=== PATIENT | male | born 1930 | race Caucasian/White ===

== ENCOUNTER 2018-02-03 12:11 | Inpatient (IN) | payer OTHER ==
[~2018-02-03] VITALS: Ht 172.7 cm; Wt 53.0 kg
[~2018-02-03 12:11] MED LIST: [UNRECOGNIZED DRUG - CODE] OPB
[2018-02-03 12:52] LABS: BASO % 0.1 %; BASO ABS # 0.01 K/uL (0-0.2); HEMATOCRIT 47.5 % (42-52); HEMOGLOBIN 16.6 g/dL (14.0-18.0); IG# 0.04 K/uL (0.00-0.02); LYMPH % 7.7 %; LYMPH ABS # 1.24 K/uL (1.2-3.4); MEAN CELL VOLUME 92.6 fL (80-100); MEAN CORPUSCULAR HEMOGLOBIN 32.4 pg (25-34); MEAN CORPUSCULAR HGB CONC 34.9 g/dl (32-36); MEAN PLATELET VOLUME 9.8 fL (7.4-10.4); MONO % 5.4 %; MONO ABS # 0.88 K/uL (0.11-0.59); NEUT % 86.6 %; NEUT ABS # 13.99 K/uL (1.4-6.5); PLATELET COUNT 168 K/uL (130-400); RED CELL DISTRIBUTION WIDTH CV 13.2 % (11.5-14.5); WHITE BLOOD COUNT 16.16 K/uL (4.8-10.8)
--- NOTE | 2018-02-03 12:56 | DIAGNOSTIC IMAGING REPORT ---
CHEST ONE VIEW PORTABLE CLINICAL HISTORY: WEAK COMPARISON STUDY: 06/18/2016 FINDINGS: The bones soft tissues and hemidiaphragms are normal. The cardiomediastinal silhouette is normal. The lungs are clear. The pulmonary vasculature is normal. IMPRESSION: Negative chest. The above report was generated using voice recognition software. It may contain grammatical, syntax or spelling errors. Electronically signed by: Merrick Quijano M.D. 02/03/2018 12:55 PM Dictated Date/Time: 02/03/2018 12:55 PM
--- NOTE | 2018-02-03 13:08 | DIAGNOSTIC IMAGING REPORT ---
CT HEAD WITHOUT CONTRAST (CT) CLINICAL HISTORY: Trauma. Confusion. COMPARISON STUDY: 06/18/2016 TECHNIQUE: Axial CT of the brain is performed from the vertex to the skull base. IV contrast was not administered for this examination. A dose lowering technique was utilized adhering to the principles of ALARA. CT DOSE: 1014.09 mGy.cm FINDINGS: No intra or extra-axial mass lesions are visualized. There is no CT evidence of acute cortical infarction. There is no evidence of midline shift. There is no acute hemorrhage. No calvarial fractures are visualized. There are patchy white matter hypodensities likely on a small vessel basis. There is mild ventricular dilatation, finding felt to be secondary to volume loss There is opacification of several left-sided ethmoid air cells. IMPRESSION: No acute intracranial findings Electronically signed by: Rosales Schwarz M.D. 02/03/2018 1:06 PM Dictated Date/Time: 02/03/2018 1:05 PM
--- NOTE | 2018-02-03 13:12 | DIAGNOSTIC IMAGING REPORT ---
CT OF THE CERVICAL SPINE CLINICAL HISTORY: Neck pain status post trauma COMPARISON STUDY: May 2016 CT DOSE: TECHNIQUE: CT scan of the cervical spine was performed from the skull base to the thoracic inlet. Images are reviewed in the axial, sagittal, and coronal planes. IV contrast was not administered for this examination. A dose lowering technique was utilized adhering to the principles of ALARA. FINDINGS: The visualized portions of the lung apices reveal no evidence of pneumothorax. The prevertebral soft tissues are normal. No fractures or subluxations are visualized. There are multilevel degenerative changes. There is a suspected small central disc protrusion at the C4-5 level. IMPRESSION: No evidence of acute fracture or traumatic subluxation. Electronically signed by: Rosales Schwarz M.D. 02/03/2018 1:10 PM Dictated Date/Time: 02/03/2018 1:07 PM
[2018-02-03 13:15] LABS: ALBUMIN 3.6 gm/dl (3.4-5.0); CALCIUM 9.1 mg/dl (8.5-10.1); CREATININE 1.19 mg/dl (0.60-1.40); POTASSIUM 4.4 mmol/L (3.5-5.1)
[2018-02-03 13:27] LABS: TOTAL PROTEIN 7.4 gm/dl (6.4-8.2)
[2018-02-03] MEDS ORDERED: CEFTRIAXONE SOD INJ 1 GM ADDVIAL IV STA (14:50)
[2018-02-03] MEDS ORDERED: SODIUM CHLORIDE 0.9% 1000ML 1,000 ML IV STA (14:54)
[2018-02-03] MEDS ORDERED: POLYETHYLENE (MIRALAX) 17 GM PACK PO PRN (15:15)
[2018-02-03] MEDS ORDERED: ALUMINUM/MAGNESIUM/SIMETH (MAALOX MAX) 30 ML UDC PO PRN (15:15)
[2018-02-03] MEDS ORDERED: MAGNESIUM HYDROXIDE SUSP 30 ML UDC PO PRN (15:15)
[2018-02-03] MEDS ORDERED: ACETAMINOPHEN 325 MG TAB PO PRN (15:15)
[2018-02-03] MEDS ORDERED: ONDANSETRON INJ 2 MG/ML 2 ML VIAL IV PRN (15:15)
--- NOTE | 2018-02-03 15:39 | DIAGNOSTIC IMAGING REPORT ---
ABD/PELVIS NO IV OR ORAL CONT CT DOSE: 345.01 mGy.cm HISTORY: Infection hx of bladder ca/complicated UTI TECHNIQUE: Multiaxial CT images of the abdomen and pelvis were performed without contrast. A dose lowering technique was utilized adhering to the principles of ALARA. COMPARISON STUDY: 06/18/2016 FINDINGS: Lung bases are clear. Configuration of the liver spleen and pancreas remain unremarkable. 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 These are similar compared to the prior study. No evidence for hydronephrosis. Bowel pattern is considered nonobstructive. There is a left posterior bladder calculus unchanged in the prior study. There is nodular process anterior aspect central prostate also unchanged. There is a left inguinal hernia containing a loop of bowel unchanged. This shows no obstructive characteristics. IMPRESSION: 1. Chronic and pre-existing changes with no acute process of the abdomen or pelvis. 2. Unchanged bladder calculus, left inguinal hernia, and bilateral renal peripelvic cysts as compared to the prior study. 3. Nonobstructive bowel pattern. The above report was generated using voice recognition software. It may contain grammatical, syntax or spelling errors. Electronically signed by: Merrick Quijano M.D. 02/03/2018 3:38 PM Dictated Date/Time: 02/03/2018 3:34 PM
[2018-02-03 16:08] VITALS: BMI 17.2
--- NOTE | 2018-02-03 16:17 | History and Physical ---
History & Physical Date & Time of Service: February 03, 2018 at 16:17 Chief Complaint: FALL Primary Care Physician: No Doctor, Assigned History of Present Illness Source: patient, clinic records, hospital records, other Patient is an 87yo M with PMH of bladder calculus who presents after being found at home after a fall. Patient is a poor historian 2/2 altered mental status and possible underlying dementia. Obtained a majority of the history from his friend Silvina, who serves as POA. Patient lives alone and is visited by a home health agency frequently. Ambulates by walker and prepares his own food. Yesterday, patient was found on the floor by home health covered in feces. An ambulance was called but patient refused to come to hospital. POA had landlord check in on patient again today and he was found to be lying on the floor covered in urine and feces. Was then brought to the ED for further evaluation. Office of Aging is aware of patient's case and have been involved in the past. POA notes confusion and generalized weakness compared to baseline. Patient is unclear of any events proceeding falls. Does not feel confused. Unable to obtain full ROS 2/2 altered mental status. Does not take any home medications besides eye drops for glaucoma. In ED, patient found to have an elevated wbc count of 16 and + UA. Also has elevated CK of 2161. Head CT, CXR, CT cervical spine without acute changes. Past Medical/Surgical History Medical Problems: (1) Glaucoma Status: Chronic (2) Lumbar transverse process fracture Status: Resolved Surgical Problems: (1) H/O hernia repair Status: Resolved Family History Patient reports no known family medical history. Social History Smoking Status: Never Smoker Alcohol Use: none Marital Status: single Housing status: lives alone Occupational Status: retired Immunizations History of Influenza Vaccine: Unknown History of Tetanus Vaccine?: Unknown History of Pneumococcal: Unknown History of Hepatitis B Vaccine: Unknown Allergies Coded Allergies: No Known Allergies (Verified , 01/02/16) Home Medications Scheduled Carteolol Hcl (Ophth) (Carteolol Hcl), 1 DROP OPB QAM Review of Systems Unable to obtain 2/2 altered mental status. Physical Exam Vital Signs Date Time Temp Pulse Resp B/P (MAP) Pulse Ox O2 Delivery O2 Flow Rate FiO2 02/03/18 16:06 36.3 90 20 130/78 95 02/03/18 14:21 90 20 130/78 95 Room Air 02/03/18 13:13 98 20 138/87 98 Room Air 02/03/18 12:40 36.3 102 20 141/83 97 Room Air 02/03/18 12:32 99 General Appearance: no apparent distress, + cachetic, + pertinent finding ( Poorly groomed) Head: normocephalic, atraumatic Eyes: normal inspection, PERRL, sclerae normal ENT: normal ENT inspection, pharynx normal (dry mucous membranes ), + pertinent finding (poor dentition ) Neck: supple, thyroid normal, trachea midline Respiratory/Chest: chest non-tender, lungs clear, normal breath sounds, no respiratory distress, no accessory muscle use Cardiovascular: regular rate, rhythm, no murmur, normal peripheral pulses Abdomen/GI: non tender, soft, no organomegaly Back: normal inspection Extremities/Musculoskelatal: no calf tenderness, normal capillary refill, no pedal edema, normal range of motion, non-tender, + pertinent finding (Large skin tear on L shoulder, no drainage. Bruising on L hip, non-tender ) Neurologic/Psych: no motor/sensory deficits, alert (oriented to person ), + disoriented Skin: warm/dry, no rash Diagnostics Laboratory Results Results Past 24 Hours Test 02/03/18 12:40 02/03/18 14:25 02/03/18 15:17 02/03/18 15:18 Range/Units White Blood Count 16.16 4.8-10.8 K/uL Red Blood Count 5.13 4.7-6.1 M/uL Hemoglobin 16.6 14.0-18.0 g/dL Hematocrit 47.5 42-52 % Mean Corpuscular Volume 92.6 80-100 fL Mean Corpuscular Hemoglobin 32.4 25-34 pg Mean Corpuscular Hemoglobin Concent 34.9 32-36 g/dl Platelet Count 168 130-400 K/uL Mean Platelet Volume 9.8 7.4-10.4 fL Neutrophils (%) (Auto) 86.6 % Lymphocytes (%) (Auto) 7.7 % Monocytes (%) (Auto) 5.4 % Eosinophils (%) (Auto) 0.0 % Basophils (%) (Auto) 0.1 % Neutrophils # (Auto) 13.99 1.4-6.5 K/uL Lymphocytes # (Auto) 1.24 1.2-3.4 K/uL Monocytes # (Auto) 0.88 0.11-0.59 K/uL Eosinophils # (Auto) 0.00 0-0.5 K/uL Basophils # (Auto) 0.01 0-0.2 K/uL RDW Standard Deviation 45.0 36.4-46.3 fL RDW Coefficient of Variation 13.2 11.5-14.5 % Immature Granulocyte % (Auto) 0.2 % Immature Granulocyte # (Auto) 0.04 0.00-0.02 K/uL Prothrombin Time 10.7 9.0-12.0 SECONDS Prothromb Time International Ratio 1.0 0.9-1.1 Sodium Level 141 136-145 mmol/L Potassium Level 4.4 3.5-5.1 mmol/L Chloride Level 107 98-107 mmol/L Carbon Dioxide Level 25 21-32 mmol/L Anion Gap 9.0 3-11 mmol/L Blood Urea Nitrogen 40 7-18 mg/dl Creatinine 1.19 0.60-1.40 mg/dl Est Creatinine Clear Calc Drug Dose 31.1 ml/min Estimated GFR () 62.8 Estimated GFR (Non- 54.2 BUN/Creatinine Ratio 33.3 10-20 Random Glucose 107 70-99 mg/dl Calcium Level 9.1 8.5-10.1 mg/dl Magnesium Level 2.4 1.8-2.4 mg/dl Total Bilirubin 1.2 0.2-1 mg/dl Direct Bilirubin 0.3 0-0.2 mg/dl Aspartate Amino Transf (AST/SGOT) 155 15-37 U/L Alanine Aminotransferase (ALT/SGPT) 76 12-78 U/L Alkaline Phosphatase 75 45-117 U/L Total Creatine Kinase 2161 39-308 U/L Troponin I 0.025 0-0.045 ng/ml Total Protein 7.4 6.4-8.2 gm/dl Albumin 3.6 3.4-5.0 gm/dl Lipase 91 73-393 U/L Chemistry Specimen Hemolysis Urine Color YELLOW Urine Appearance CLEAR CLEAR Urine pH 5.0 4.5-7.5 Urine Specific [place] 1.027 1.000-1.030 Urine Protein TRACE NEG Urine Glucose (UA) NEG NEG Urine Ketones 1+ NEG Urine Occult Blood 3+ NEG Urine Nitrite POS NEG Urine Bilirubin NEG NEG Urine Urobilinogen NEG NEG Urine Leukocyte Esterase SMALL NEG Urine WBC (Auto) 10-30 0-5 /hpf Urine RBC (Auto) 0-4 0-4 /hpf Urine Hyaline Casts (Auto) 5-10 0-5 /lpf Urine Epithelial Cells (Auto) 0-5 0-5 /lpf Urine Bacteria (Auto) 1+ NEG Microbiology Results 02/03/18 Blood Culture, Ordered Pending 02/03/18 Blood Culture, Received Pending 02/03/18 Urine Culture, Received Pending Diagnostic Radiology CHEST ONE VIEW PORTABLE IMPRESSION: Negative chest. CT OF THE CERVICAL SPINE IMPRESSION: No evidence of acute fracture or traumatic subluxation. CT HEAD WITHOUT CONTRAST (CT) IMPRESSION: No acute intracranial findings CXR normal EKG Sinus tachycardia of [address] abnormality in inferior leads Impression Assessment and Plan Patient is an 87yo M with PMH of bladder calculus who presents after being found at home after a fall and was found to have a UTI and rhabdomyolysis. Metabolic encephalopathy: -In setting of UTI, possible underlying dementia -Situational confusion, agitation -CT head without acute changes -Continue antibiotics, IV fluids -Monitor overnight Complicated UTI: -Wbc of 16, vitals stable -Non-toxic appearance - + UA, urine culture pending -CT abd/pelvis with presence of unchanged bladder calcifications, bilateral renal peripelvic cysts -Rocephin given in ED -Levaquin initiated to cover for possible aspiration -IV fluids Rhabdomyolysis: -S/p multiple falls -CK elevated to 2161 -IV fluid resuscitation -Monitor CK level Possible aspiration: -Witnessed patient coughing during dinner -Made NPO after failed dysphagia screen -Added Unsyn for possible aspiration elevated Procalcitonin/EBC 11 K -CXR in AM to assess for possible aspiration PNA -Speech evaluation /aspiration precaution Multiple falls: -Unwitnessed -Likely 2/2 infection, deconditioning, poor nutrition -No underlying cardiac history, -PT/OT evaluation and conditioning -Consider discharge to rehab Malnutrition: -BMI <18 -Poor diet at home (mostly peanut butter and powdered milk) -Sales And Marketing Executive consult -D5 NSS IV fluids for now Glaucoma: -Cont eye drop DVT Ppx: SQ heparin PCP: Unassigned Dispo: Admitted to med/surg. Discharge planning ordered for rehab vs. placement Silvina Hodges (POA): [phone] Maximilian Bunnystas (office of aging): [phone] Patient seen in collaboration with Dr. Lake. Please see addendum. ATTENDING ADDENDUM: Patient seen and examined care coordinated with Karlene Pond PA-C This is a 87-year-old man-who has not followed with any physician for a while, found on the floor in his apartment, covered in feces History of recurrent fall The ER patient had elevated CPK suggestive of early rhabdomyolysis/possible complicated UTI secondary to prior history of bladder stone/failure to thrive Patient will be admitted to medical floor IV fluid resuscitation Empiric antibiotic Ordered for blood and urine culture Confusion/agitation: Possible metabolic encephalopathy secondary to dehydration and urinary tract infection Part POA at baseline patient is alert and awake able to capable of making own decision patient also noted to have andrew aspiration while eating dinner Patient failed dysphagia screening Ordered for n.p.o. Speech evaluation requested Added Unasyn for coverage of anaerobes in case of aspiration pneumonia CODE STATUS: Patient has POA/POLST form included in chart It reports patient did not want it chest compression, mechanical ventilation No feeding tube PT OT eval requested secondary to ambulatory dysfunction, history of recent falls Patient will need possible skilled rehab followed by placement(unsafe to return home with current situation) Patient has refused to go to rehab, get help multiple times in the past office of aging has been involved Social service consulted for discharge planning Modesta Lake MD Resuscitation Status VTE Prophylaxis Will order VTE Prophylaxis: Yes
[2018-02-03 17:00] VITALS: BP 151/81; PULSE 104; TEMP 37; O2SAT 95
[2018-02-03] MEDS ORDERED: LACTATED RINGER'S 1000ML 1,000 ML IV SCH (17:00)
--- NOTE | 2018-02-03 17:00 | EMERGENCY ROOM VISIT NOTE ---
History Report prepared by Rodney: Feliz Cooper Under the Supervision of: Dr. Bladimir Edge D.O. First contact with patient: 12:14 Chief Complaint: FALL Stated Complaint: FALL History of Present Illness The patient is a 87 year old male who presents to the Emergency Room by EMS for evaluation s/p fall occurring today. He lives alone and is visited by several people who help take care of him. EMS states that it is unknown how long the patient was down for today. They note that the patient had a similar fall earlier this week. They state that the patient defecated himself during the previous fall, and appears to have either not been cleaned up, or have defecated himself again. EMS states that the office of aging is aware of the patient's case. The patient denies urinary symptoms, chest pain, SOB, or abdominal pain. HPI limited secondary to mental state. Source of History: patient History Limited By: other (mental state) Onset: Today Quality: other (fall) Timing: other (episode) Associated Symptoms: No chest pain, No SOB, No abdominal pain, No urinary symptoms Review of Systems ROS limited secondary to mental state. Past Medical & Surgical Medical Problems: (1) Glaucoma (2) Lumbar transverse process fracture (3) prostate surgery Surgical Problems: (1) H/O hernia repair Family History Patient reports no known family medical history. Social History Smoking Status: Never Smoker Alcohol Use: none Marital Status: single Housing Status: lives alone Occupation Status: retired Current/Historical Medications Scheduled Carteolol Hcl (Ophth) (Carteolol Hcl), 1 DROP OPB QAM Allergies Coded Allergies: No Known Allergies (Verified , 01/02/16) Physical Exam Vital Signs Date Time Temp Pulse Resp B/P (MAP) Pulse Ox O2 Delivery O2 Flow Rate FiO2 02/03/18 16:08 Room Air 02/03/18 16:06 36.3 90 20 130/78 95 02/03/18 14:21 90 20 130/78 95 Room Air 02/03/18 13:13 98 20 138/87 98 Room Air 02/03/18 12:40 36.3 102 20 141/83 97 Room Air 02/03/18 12:32 99 Physical Exam GENERAL: Laying in bed, disheveled, malnourished, chronically ill-appearing, covered in stool head to toe. EYE EXAM: normal conjunctiva. PERRL and EOM's intact. OROPHARYNX: no exudate, no erythema, lips, buccal mucosa, and tongue normal and mucous membranes are moist NECK: supple, no nuchal rigidity, no adenopathy, non-tender LUNGS: Clear to auscultation. Normal chest wall mechanics HEART: no murmurs, S1 normal and S2 normal ABDOMEN: abdomen soft, non-tender, normo-active bowel sounds, no masses, no rebound or guarding. BACK: Back is symmetrical on inspection and there is no deformity, no midline tenderness, no CVA tenderness. SKIN: no rashes and no bruising UPPER EXTREMITIES: upper extremities are grossly normal. LOWER EXTREMITIES: No pitting edema. NEURO EXAM: Awake, not oriented to place but oriented to year. No gross weakness of upper or lower extremities. CN 2-12 intact. Medical Decision & Procedures ER Provider Diagnostic Interpretation: Radiology results as stated below per my review and the radiologist's interpretation: CHEST ONE VIEW PORTABLE FINDINGS: The bones soft tissues and hemidiaphragms are normal. The cardiomediastinal silhouette is normal. The lungs are clear. The pulmonary vasculature is normal. IMPRESSION: Negative chest. The above report was generated using voice recognition software. It may contain grammatical, syntax or spelling errors. Electronically signed by: Merrick Quijano M.D. 02/03/2018 12:[address] OF THE CERVICAL SPINE FINDINGS: The visualized portions of the lung apices reveal no evidence of pneumothorax. The prevertebral soft tissues are normal. No fractures or subluxations are visualized. There are multilevel degenerative changes. There is a suspected small central disc protrusion at the C4-5 level. IMPRESSION: No evidence of acute fracture or traumatic subluxation. Electronically signed by: Rosales Schwarz M.D. 02/03/2018 1:[address] HEAD WITHOUT CONTRAST (CT) FINDINGS: No intra or extra-axial mass lesions are visualized. There is no CT evidence of acute cortical infarction. There is no evidence of midline shift. There is no acute hemorrhage. No calvarial fractures are visualized. There are patchy white matter hypodensities likely on a small vessel basis. There is mild ventricular dilatation, finding felt to be secondary to volume loss There is opacification of several left-sided ethmoid air cells. IMPRESSION: No acute intracranial findings Electronically signed by: Rosales Schwarz M.D. 02/03/2018 1:06 PM Laboratory Results 02/03/18 12:40 Red Blood Count 5.13, Mean Corpuscular Volume 92.6, Mean Corpuscular Hemoglobin 32.4, Mean Corpuscular Hemoglobin Concent 34.9, Mean Platelet Volume 9.8, Neutrophils (%) (Auto) 86.6, Lymphocytes (%) (Auto) 7.7, Monocytes (%) (Auto) 5.4, Eosinophils (%) (Auto) 0.0, Basophils (%) (Auto) 0.1, Neutrophils # (Auto) 13.99, Lymphocytes # (Auto) 1.24, Monocytes # (Auto) 0.88, Eosinophils # (Auto) 0.00, Basophils # (Auto) 0.01 02/03/18 12:40 Test 02/03/18 12:40 02/03/18 14:25 02/03/18 15:18 02/03/18 16:17 White Blood Count 16.16 K/uL (4.8-10.8) Red Blood Count 5.13 M/uL (4.7-6.1) Hemoglobin 16.6 g/dL (14.0-18.0) Hematocrit 47.5 % (42-52) Mean Corpuscular Volume 92.6 fL (80-100) Mean Corpuscular Hemoglobin 32.4 pg (25-34) Mean Corpuscular Hemoglobin Concent 34.9 g/dl (32-36) Platelet Count 168 K/uL (130-400) Mean Platelet Volume 9.8 fL (7.4-10.4) Neutrophils (%) (Auto) 86.6 % Lymphocytes (%) (Auto) 7.7 % Monocytes (%) (Auto) 5.4 % Eosinophils (%) (Auto) 0.0 % Basophils (%) (Auto) 0.1 % Neutrophils # (Auto) 13.99 K/uL (1.4-6.5) Lymphocytes # (Auto) 1.24 K/uL (1.2-3.4) Monocytes # (Auto) 0.88 K/uL (0.11-0.59) Eosinophils # (Auto) 0.00 K/uL (0-0.5) Basophils # (Auto) 0.01 K/uL (0-0.2) RDW Standard Deviation 45.0 fL (36.4-46.3) RDW Coefficient of Variation 13.2 % (11.5-14.5) Immature Granulocyte % (Auto) 0.2 % Immature Granulocyte # (Auto) 0.04 K/uL (0.00-0.02) Prothrombin Time 10.7 SECONDS (9.0-12.0) Prothromb Time International Ratio 1.0 (0.9-1.1) Anion Gap 9.0 mmol/L (3-11) Est Creatinine Clear Calc Drug Dose 31.1 ml/min Estimated GFR () 62.8 Estimated GFR (Non- 54.2 BUN/Creatinine Ratio 33.3 (10-20) Calcium Level 9.1 mg/dl (8.5-10.1) Magnesium Level 2.4 mg/dl (1.8-2.4) Total Bilirubin 1.2 mg/dl (0.2-1) Direct Bilirubin 0.3 mg/dl (0-0.2) Aspartate Amino Transf (AST/SGOT) 155 U/L (15-37) Alanine Aminotransferase (ALT/SGPT) 76 U/L (12-78) Alkaline Phosphatase 75 U/L (45-117) Total Creatine Kinase 2161 U/L (39-308) Troponin I 0.025 ng/ml (0-0.045) Total Protein 7.4 gm/dl (6.4-8.2) Albumin 3.6 gm/dl (3.4-5.0) Lipase 91 U/L (73-393) Chemistry Specimen Hemolysis Urine Color YELLOW Urine Appearance CLEAR (CLEAR) Urine pH 5.0 (4.5-7.5) Urine Specific [place] 1.027 (1.000-1.030) Urine Protein TRACE (NEG) Urine Glucose (UA) NEG (NEG) Urine Ketones 1+ (NEG) Urine Occult Blood 3+ (NEG) Urine Nitrite POS (NEG) Urine Bilirubin NEG (NEG) Urine Urobilinogen NEG (NEG) Urine Leukocyte Esterase SMALL (NEG) Urine WBC (Auto) 10-30 /hpf (0-5) Urine RBC (Auto) 0-4 /hpf (0-4) Urine Hyaline Casts (Auto) 5-10 /lpf (0-5) Urine Epithelial Cells (Auto) 0-5 /lpf (0-5) Urine Bacteria (Auto) 1+ (NEG) Lactic Acid Level 1.9 mmol/L (0.4-2.0) Laboratory results per my review. Medications Administered Medications (Trade) Dose Ordered Sig/Juan Francisco Route Start Time Stop Time Status Last Admin Dose Admin Ceftriaxone Sodium (Rocephin Inj) 1 gm NOW STAT IV 02/03/18 14:50 02/03/18 14:51 DC 02/03/18 14:57 1 GM Sodium Chloride 1,000 ml @ 999 mls/hr Q1H1M STAT IV 02/03/18 14:54 02/03/18 15:54 DC 02/03/18 14:59 999 MLS/HR ECG Per My Interpretation Indication: altered mental status Rate (beats per minute): 102 Rhythm: sinus tachycardia Findings: other (Normal axis. Non-specific ST wave changes inferiorly. ) ED Course ED COURSE: Vital signs were reviewed and showed tachycardia. The patients medical record was reviewed The above diagnostic studies were performed and reviewed. ED treatments and interventions as stated above. 1220: The patient was evaluated in room A12B. A complete history and physical examination was performed. 1450: Ordered Rocephin Inj 1 gm IV. 1454: Ordered Sodium Chloride 1000 ml @ 999 mls/hr IV. 1500: Upon reevaluation, the patient is resting comfortably. I discussed my findings with the patient and he understands and agrees with the treatment plan. Based on the patients age, coexisting illnesses, exam and lab findings the decision to treat as an inpatient was made. The patient remained stable while under my care. The patient will be evaluated for further management. Medical Decision Differential diagnosis includes etiologies such as sepsis, UTI, pneumonia, metabolic, electrolyte abnormalities, cardiac sources, intracerebral event, toxicologic, neurologic, as well as others were entertained. Patient is an 87-year-old male who presents the ER covered in stool not oriented to location brought in by EMS. Patient was cleaned and CT head was obtained and unremarkable. Vitals show a leukocytosis along with a clear UTI. Patient was given broad-spectrum antibiotics and fluids. He was updated at bedside. BMP was unremarkable but CK was elevated at 1999. Patient was updated at bedside patient was admitted to internal medicine for rhabdomyolysis in combination with UTI and leukocytosis. Medication Reconcilliation Current Medication List: was personally reviewed by me Blood Pressure Screening Patient's blood pressure: Elevated blood pressure Blood pressure disposition: Elevated BP felt to be situational Consults Time Called: 1457 Consulting Physician: Karlene Harris Hospitalist Returned Call: 1500 I reviewed the patient's case with Karlene Harris will evaluate the patient for further management. Impression Primary Impression: Altered mental status Additional Impressions: UTI (urinary tract infection) Rhabdomyolysis Scribe Attestation The scribe's documentation has been prepared under my direction and personally reviewed by me in its entirety. I confirm that the note above accurately reflects all work, treatment, procedures, and medical decision making performed by me. Departure Information Dispostion Being Evaluated By Hospitalist Referrals No Doctor, Assigned (PCP) Patient Instructions My [facility] Problem Qualifiers Primary Impression: Altered mental status Altered mental status type: unspecified Qualified Codes: R41.82 - Altered mental status, unspecified Additional Impressions: UTI (urinary tract infection) Urinary tract infection type: acute cystitis Hematuria presence: with hematuria Qualified Codes: N30.01 - Acute cystitis with hematuria Rhabdomyolysis Rhabdomyolysis type: non-traumatic Qualified Codes: M62.82 - Rhabdomyolysis
[2018-02-03] MEDS: HEPARIN SOD 5000 UNIT/0.5 ML CARP SQ SCH (18:00)
[2018-02-03] MEDS: D5W AND NSS 1,000 ML IV SCH (19:03)
[2018-02-03] MEDS: AMPICILLIN/SULBACTAM SOD INJ 1,500 MG in SODIUM CHLORIDE 0.9% 100ML 100 ML IV SCH (21:35)
[2018-02-03 23:12] VITALS: BP 140/82; PULSE 88; TEMP 37.1; O2SAT 99
[2018-02-04] MEDS: AMPICILLIN/SULBACTAM SOD INJ 1,500 MG in SODIUM CHLORIDE 0.9% 100ML 100 ML IV SCH ×4 (03:13→20:53)
[2018-02-04] MEDS: D5W AND NSS 1,000 ML IV SCH ×3 (03:46→18:18)
[2018-02-04] MEDS: HEPARIN SOD 5000 UNIT/0.5 ML CARP SQ SCH ×2 (05:05→17:56)
[2018-02-04 07:04] LABS: HEMOGLOBIN 15.2 g/dL (14.0-18.0); MEAN CELL VOLUME 93.1 fL (80-100); MEAN CORPUSCULAR HEMOGLOBIN 32.9 pg (25-34); MEAN CORPUSCULAR HGB CONC 35.3 g/dl (32-36); MEAN PLATELET VOLUME 9.7 fL (7.4-10.4); PLATELET COUNT 127 K/uL (130-400); RED CELL DISTRIBUTION WIDTH CV 13.2 % (11.5-14.5); WHITE BLOOD COUNT 11.83 K/uL (4.8-10.8)
--- NOTE | 2018-02-04 07:05 | DIAGNOSTIC IMAGING REPORT ---
CHEST ONE VIEW PORTABLE CLINICAL HISTORY: Evaluation for aspiration COMPARISON STUDY: I 10 2017 FINDINGS: The bones soft tissues and hemidiaphragms are normal. The cardiomediastinal silhouette is normal. The lungs are clear. The pulmonary vasculature is normal. IMPRESSION: Negative chest. The above report was generated using voice recognition software. It may contain grammatical, syntax or spelling errors. Electronically signed by: Merrick Quijano M.D. 02/04/2018 7:04 AM Dictated Date/Time: 02/04/2018 7:02 AM
[2018-02-04 07:09] VITALS: BP 120/74; PULSE 91; TEMP 36.5; O2SAT 98
--- NOTE | 2018-02-04 07:14 | Clinical Documentation Query ---
CLINICAL DOCUMENTATION QUERY 87 year old male who presents to the Emergency Room by EMS for evaluation s/p fall occurring today. In your clinical opinion is this patient being managed for: ( x ) Severe protein-calorie malnutrition ( ) Moderate protein-calorie malnutrition ( ) Mild protein-calore malnutrition ( ) Not Agree ( ) Other explanation of clinical findings (No explanation is considered a No Response) ( ) Unable to determine ( ) Need to Discuss (Phone CDS or qliq) (No discussion is considered a No Response) The medical record reflects the following clinical findings, treatment, and risk factors. Clinical Indicators: Cachetic appearance, suspected dementia, BMI 17.2, Wt 51.2 Kg, ?aspiration Treatment: Dietary consult, Risk Factors: Age, dementia, Please clarify and document your clinical opinion in the progress notes and discharge summary. Terms such as "probable", "suspected", "likely", "questionable", "possible", or "still to be ruled out" are acceptable. IF IN AGREEMENT, YOU MUST DOCUMENT ABOVE DIAGNOSTIC STATEMENT IN DAILY PROGRESS NOTES AND DISCHARGE SUMMARY. This document is not part of the patient's record. Thank You, Vasu Smalls RN [phone] & via qlicCONNECT
[2018-02-04 08:14] LABS: ALBUMIN 2.7 gm/dl (3.4-5.0); CALCIUM 8.1 mg/dl (8.5-10.1); CREATININE 0.86 mg/dl (0.60-1.40); PHOSPHORUS 1.6 mg/dl (2.5-4.9); POTASSIUM 4.2 mmol/L (3.5-5.1); TOTAL PROTEIN 5.8 gm/dl (6.4-8.2)
[2018-02-04] MEDS: CARTEOLOL HCL 1% OP SOLN 5 ML BTL OPB SCH (08:52)
[2018-02-04] MEDS: CEFTRIAXONE SOD INJ 1 GM in DEXTROSE 5% ADD-VANTAGE 50ML 50 ML IV SCH (13:54)
[2018-02-04 14:12] VITALS: Ht 172.7 cm; Wt 53.0 kg
[2018-02-04] MEDS ORDERED: NURSING DECISION MEDICATION ORDER SCH (14:15)
[2018-02-04] MEDS ORDERED: MICONAZOLE NITRATE POWDER 43 GM EXT PRN (14:15)
--- NOTE | 2018-02-04 16:04 | DIAGNOSTIC IMAGING REPORT ---
VIDEO SWALLOW HISTORY: aspirated during bedside eval; please schedule per order TECHNIQUE: Video fluoroscopic evaluation of swallowing was performed in the AP and lateral projections by the speech pathology staff. The patient is fed nectar-thick and thin liquid barium, a barium coated wafer, and barium pudding. FLUOROSCOPY TIME: 3.5 minutes. A cine loop submitted. COMPARISON STUDY: None. FINDINGS: Multiple abscesses of incomplete epiglottic deflection resulting in silent aspiration with all barium consistencies. There is also moderate to advanced residue seen throughout the hypopharynx throughout the examination. IMPRESSION: 1. Multiple episodes of silent aspiration identified throughout the examination. 2. Please see the speech pathologist report for detailed findings and recommendations. Electronically signed by: Jose Luis Liang M.D. 02/04/2018 4:03 PM Dictated Date/Time: 02/04/2018 4:00 PM
[2018-02-04 16:45] VITALS: O2SAT 98
--- NOTE | 2018-02-04 22:49 | Progress Note ---
Medicine Progress Note Date & Time of Visit: February 04, 2018 at 19:05 . Subjective CC: Follow-up visit for multiple problems. HPI: Admitted yesterday after being found at home on floor. Timing and nature of fall unclear. Better today. No chest pain. No cough or SOB. No nausea or vomiting. Has tremor, onset unclear. Denies alcohol consumption. ROS: as noted above in HPI . Objective Last 8 Hrs Date Time Temp Pulse Resp B/P (MAP) Pulse Ox O2 Delivery O2 Flow Rate FiO2 02/04/18 16:45 98 Room Air Physical Exam: General- lying in bed; no distress Lungs- clear to auscultation; no respiratory distress Cardiovascular- RRR; no JVD; no pretibial edema Abdomen- + bowel sounds, soft, nontender Extremities- no cyanosis; no calf tenderness Neuro- alert, somewhat confused, resting tremor Skin- warm & dry . Laboratory Results: Last 24 Hours Test 02/04/18 05:30 02/04/18 06:44 Urine Opiates Screen NEG Urine Methadone, Qualitative NEG Urine Barbiturates NEG Urine Phencyclidine (PCP) Level NEG Ur Amphetamine/Methamphetamine NEG MDMA (Ecstasy) Screen NEG Urine Benzodiazepines Screen NEG Urine Cocaine Metabolite NEG Urine Marijuana (THC) NEG White Blood Count 11.83 K/uL Red Blood Count 4.62 M/uL Hemoglobin 15.2 g/dL Hematocrit 43.0 % Mean Corpuscular Volume 93.1 fL Mean Corpuscular Hemoglobin 32.9 pg Mean Corpuscular Hemoglobin Concent 35.3 g/dl RDW Standard Deviation 45.0 fL RDW Coefficient of Variation 13.2 % Platelet Count 127 K/uL Mean Platelet Volume 9.7 fL Sodium Level 147 mmol/L Potassium Level 4.2 mmol/L Chloride Level 115 mmol/L Carbon Dioxide Level 29 mmol/L Anion Gap 3.0 mmol/L Blood Urea Nitrogen 25 mg/dl Creatinine 0.86 mg/dl Est Creatinine Clear Calc Drug Dose 43.0 ml/min Estimated GFR () 89.7 Estimated GFR (Non- 77.4 BUN/Creatinine Ratio 28.9 Random Glucose 135 mg/dl Calcium Level 8.1 mg/dl Phosphorus Level 1.6 mg/dl Magnesium Level 2.3 mg/dl Total Bilirubin 1.1 mg/dl Direct Bilirubin 0.2 mg/dl Aspartate Amino Transf (AST/SGOT) 115 U/L Alanine Aminotransferase (ALT/SGPT) 69 U/L Alkaline Phosphatase 58 U/L Total Creatine Kinase 1160 U/L Total Protein 5.8 gm/dl Albumin 2.7 gm/dl Globulin 3.1 gm/dl Albumin/Globulin Ratio 0.9 Assessment & Plan ALTERED MENTAL STATUS Probable metabolic encephalopathy from dehydration and / or encephalopathy secondary to infection. Follow. UTI (present on admission) Urinalysis demonstrated nitrates, leukocyte esterase, WBCs, bacteria. Urine culture pending. Currently receiving ceftriaxone. POSSIBLE SEPSIS Met criteria for sepsis per Sepsis-1 definition and current CMS guidelines. Was tachycardic at time of presentation with a white count of 16,000. Hemodynamically stable. Serum lactate 1.9. Procalcitonin = 14.92. Most likely source of infection urinary tract as discussed above. Continue antibiotics pending blood culture results. DEHYDRATION BUN and creatinine at time of admission 40 and 1.19, respectively. Continue IV fluids. RHABDOMYOLYSIS Secondary to fall and/or immobilization. Total CPK 2161 --> 1160. Continue IV fluids. Monitor renal function. ASPIRATION Witnessed episode of coughing while eating. No infiltrates on chest x-ray. Evaluated by AQUA AMMONIA OPERATOR. Videofluoroscopy demonstrated multiple episodes of silent aspiration. NPO status recommended by AQUA AMMONIA OPERATOR as safest option, but may not be acceptable to the patient. Will require further discussion with patient and his POA. MALNUTRITION Weight 51.2 kg, BMI 17.2. Serum albumin 2.7. Severe protein calorie malnutrition. Malnutrition may be secondary to combination of factors, including dysphagia with aspiration and social factors. Need to address see if this options for nutrition as discussed above. Follow nutritional parameters. Dietitian consulted. FALLS Recurrent falls. Mechanism(s) uncertain. PT / OT. GLAUCOMA Continue usual ophthalmic medications. VTE PROPHYLAXIS SQ heparin. Ambulate. DISPOSITION To be determined. Anticipate need for skilled care and possible long-term placement. Follow by [facility] A[facility]. Consult Case Management. . Current Inpatient Medications: Current Inpatient Medications Medications (Trade) Dose Ordered Sig/Juan Francisco Route Start Time Stop Time Status Last Admin Dose Admin Acetaminophen (Tylenol Tab) 650 mg Q4H PRN PO 02/03/18 15:15 03/05/18 15:14 Al Hydrox/Mg Hydrox/Simethicone (Maalox Max Susp) 15 ml Q4H PRN PO 02/03/18 15:15 03/05/18 15:14 Magnesium Hydroxide (Milk Of Magnesia Susp) 30 ml Q6H PRN PO 02/03/18 15:15 03/05/18 15:14 Polyethylene (Miralax Powder Packet) 17 gm DAILY PRN PO 02/03/18 15:15 03/05/18 15:14 Ondansetron HCl (Zofran Inj) 4 mg Q6H PRN IV 02/03/18 15:15 03/05/18 15:14 Heparin Sodium (Porcine) (Heparin Sq 5000 Unit/0.5ml) 5,000 unit Q12H SQ 02/03/18 18:00 03/05/18 17:59 02/04/18 17:56 5,000 UNIT Ceftriaxone Sodium 1 gm/ Dextrose 50 ml @ 100 mls/hr Q24H IV 02/04/18 14:00 02/13/18 13:59 02/04/18 13:54 100 MLS/HR Carteolol HCl (Ocupress 1% Op-Substitute) 1 drops QAM OPB 02/04/18 08:00 03/06/18 08:59 02/04/18 08:52 1 DROPS Dextrose/Sodium Chloride 1,000 ml @ 125 mls/hr Q8H IV 02/03/18 18:45 03/05/18 18:44 02/04/18 18:18 125 MLS/HR Ampicillin Sodium/ Sulbactam Sodium 1500 mg/Sodium Chloride 104 ml @ 200 mls/hr Q6H IV 02/03/18 21:00 02/10/18 20:59 02/04/18 20:53 200 MLS/HR Miconazole Nitrate (Desenex Powder) 1 appln PRN PRN EXT 02/04/18 14:15 03/06/18 14:14
[2018-02-05] MEDS: D5W AND NSS 1,000 ML IV SCH ×2 (00:30→11:52)
[2018-02-05 00:42] VITALS: BP 141/71; PULSE 89; TEMP 36.5; O2SAT 95
[2018-02-05] MEDS: AMPICILLIN/SULBACTAM SOD INJ 1,500 MG in SODIUM CHLORIDE 0.9% 100ML 100 ML IV SCH ×3 (04:31→17:17)
[2018-02-05] MEDS: HEPARIN SOD 5000 UNIT/0.5 ML CARP SQ SCH ×2 (06:00→17:54)
[2018-02-05 07:17] VITALS: BP 119/68; PULSE 81; TEMP 36.4; O2SAT 97
[2018-02-05 07:30] VITALS: O2SAT 97
[2018-02-05] MEDS: CARTEOLOL HCL 1% OP SOLN 5 ML BTL OPB SCH (07:33)
[2018-02-05 07:54] LABS: HEMATOCRIT 37.2 % (42-52); HEMOGLOBIN 12.8 g/dL (14.0-18.0); MEAN CELL VOLUME 93.7 fL (80-100); MEAN CORPUSCULAR HEMOGLOBIN 32.2 pg (25-34); MEAN CORPUSCULAR HGB CONC 34.4 g/dl (32-36); MEAN PLATELET VOLUME 9.8 fL (7.4-10.4); PLATELET COUNT 119 K/uL (130-400); RED CELL DISTRIBUTION WIDTH CV 13.1 % (11.5-14.5); RED CELL DISTRIBUTION WIDTH SD 45.1 fL (36.4-46.3); WHITE BLOOD COUNT 7.08 K/uL (4.8-10.8)
[2018-02-05 08:59] LABS: ALBUMIN 2.3 gm/dl (3.4-5.0); CALCIUM 7.7 mg/dl (8.5-10.1); CREATININE 0.67 mg/dl (0.60-1.40); POTASSIUM 3.4 mmol/L (3.5-5.1)
[2018-02-05 09:22] LABS: PHOSPHORUS 1.4 mg/dl (2.5-4.9)
[2018-02-05 17:05] VITALS: BP 129/69; PULSE 76; TEMP 36.3; O2SAT 98
[2018-02-05] MEDS: CEFTRIAXONE SOD INJ 1 GM in DEXTROSE 5% ADD-VANTAGE 50ML 50 ML IV SCH (17:54)
--- NOTE | 2018-02-05 19:05 | Progress Note ---
Medicine Progress Note Date & Time of Visit: February 05, 2018 at 11:30 . Subjective CC: Follow-up visit for multiple problems. HPI: Admitted 02/03 after being found at home on floor. Timing and nature of fall unclear. Better today. Less confused. Would like to eat. No fever. No chest pain. No cough or SOB. No nausea or vomiting. ROS: as noted above in HPI . Objective Last 8 Hrs Date Time Temp Pulse Resp B/P (MAP) Pulse Ox O2 Delivery O2 Flow Rate FiO2 02/05/18 17:05 36.3 76 18 129/69 (89) 98 Room Air 02/05/18 17:01 Room Air Physical Exam: General- lying in bed; no distress Lungs- clear to auscultation; no respiratory distress Cardiovascular- RRR; no JVD; no pretibial edema Abdomen- + bowel sounds, soft, nontender Extremities- no cyanosis; no calf tenderness Neuro- alert, somewhat confused, resting tremor Skin- warm & dry . Laboratory Results: Last 24 Hours Test 02/05/18 00:09 02/05/18 07:27 Bedside Glucose 96 mg/dl White Blood Count 7.08 K/uL Red Blood Count 3.97 M/uL Hemoglobin 12.8 g/dL Hematocrit 37.2 % Mean Corpuscular Volume 93.7 fL Mean Corpuscular Hemoglobin 32.2 pg Mean Corpuscular Hemoglobin Concent 34.4 g/dl RDW Standard Deviation 45.1 fL RDW Coefficient of Variation 13.1 % Platelet Count 119 K/uL Mean Platelet Volume 9.8 fL Sodium Level 146 mmol/L Potassium Level 3.4 mmol/L Chloride Level 116 mmol/L Carbon Dioxide Level 28 mmol/L Anion Gap 2.0 mmol/L Blood Urea Nitrogen 14 mg/dl Creatinine 0.67 mg/dl Est Creatinine Clear Calc Drug Dose 57.1 ml/min Estimated GFR () 99.4 Estimated GFR (Non- 85.8 BUN/Creatinine Ratio 20.2 Random Glucose 115 mg/dl Calcium Level 7.7 mg/dl Phosphorus Level 1.4 mg/dl Magnesium Level 2.1 mg/dl Total Bilirubin 0.7 mg/dl Direct Bilirubin 0.2 mg/dl Aspartate Amino Transf (AST/SGOT) 70 U/L Alanine Aminotransferase (ALT/SGPT) 58 U/L Alkaline Phosphatase 46 U/L Total Creatine Kinase 603 U/L Total Protein 5.0 gm/dl Albumin 2.3 gm/dl Globulin 2.7 gm/dl Albumin/Globulin Ratio 0.9 Assessment & Plan ALTERED MENTAL STATUS Probable metabolic encephalopathy from dehydration and / or encephalopathy secondary to infection. Follow. UTI (present on admission) Urinalysis demonstrated nitrates, leukocyte esterase, WBCs, bacteria. Urine culture pending. Currently receiving ceftriaxone. POSSIBLE SEPSIS Met criteria for sepsis per Sepsis-1 definition and current CMS guidelines. Was tachycardic at time of presentation with a white count of 16,000. Hemodynamically stable. Serum lactate 1.9. Procalcitonin = 14.92. Most likely source of infection urinary tract as discussed above. Continue antibiotics pending blood culture results. DEHYDRATION BUN and creatinine at time of admission 40 and 1.19, respectively. Continue IV fluids. RHABDOMYOLYSIS Secondary to fall and/or immobilization. Total CPK 2161 --> 1160 --> 603. Continue IV fluids. Monitor renal function. ASPIRATION Witnessed episode of coughing while eating. No infiltrates on chest x-ray. Evaluated by BRICK GRADER. Videofluoroscopy demonstrated multiple episodes of silent aspiration. NPO status recommended by BRICK GRADER as safest option, but may not be acceptable to the patient. Will require further discussion with patient and his POA. MALNUTRITION Weight 51.2 kg, BMI 17.2. Serum albumin 2.7. Severe protein calorie malnutrition. Malnutrition may be secondary to combination of factors, including dysphagia with aspiration and social factors. Need to address see if this options for nutrition as discussed above. Follow nutritional parameters. Dietitian consulted. FALLS Recurrent falls. Mechanism(s) uncertain. PT / OT. GLAUCOMA Continue usual ophthalmic medications. VTE PROPHYLAXIS SQ heparin. Ambulate. DISPOSITION To be determined. Anticipate need for skilled care and possible long-term placement. Follow by [facility]. Consult Case Management. . Current Inpatient Medications: Current Inpatient Medications Medications (Trade) Dose Ordered Sig/Juan Francisco Route Start Time Stop Time Status Last Admin Dose Admin Acetaminophen (Tylenol Tab) 650 mg Q4H PRN PO 02/03/18 15:15 03/05/18 15:14 Al Hydrox/Mg Hydrox/Simethicone (Maalox Max Susp) 15 ml Q4H PRN PO 02/03/18 15:15 03/05/18 15:14 Magnesium Hydroxide (Milk Of Magnesia Susp) 30 ml Q6H PRN PO 02/03/18 15:15 03/05/18 15:14 Polyethylene (Miralax Powder Packet) 17 gm DAILY PRN PO 02/03/18 15:15 03/05/18 15:14 Ondansetron HCl (Zofran Inj) 4 mg Q6H PRN IV 02/03/18 15:15 03/05/18 15:14 Heparin Sodium (Porcine) (Heparin Sq 5000 Unit/0.5ml) 5,000 unit Q12H SQ 02/03/18 18:00 03/05/18 17:59 02/04/18 17:56 5,000 UNIT Ceftriaxone Sodium 1 gm/ Dextrose 50 ml @ 100 mls/hr Q24H IV 02/04/18 14:00 02/13/18 13:59 02/05/18 17:54 100 MLS/HR Carteolol HCl (Ocupress 1% Op-Substitute) 1 drops QAM OPB 02/04/18 08:00 03/06/18 08:59 02/05/18 07:33 1 DROPS Dextrose/Sodium Chloride 1,000 ml @ 125 mls/hr Q8H IV 02/03/18 18:45 03/05/18 18:44 02/05/18 11:52 125 MLS/HR Ampicillin Sodium/ Sulbactam Sodium 1500 mg/Sodium Chloride 104 ml @ 200 mls/hr Q6H IV 02/03/18 21:00 02/10/18 20:59 02/05/18 17:17 200 MLS/HR Miconazole Nitrate (Desenex Powder) 1 appln PRN PRN EXT 02/04/18 14:15 03/06/18 14:14
[2018-02-05] MEDS: POTASSIUM PHOSPHATE IV SCH (21:14)
[2018-02-05] MEDS: [UNRECOGNIZED DRUG - OTHER] IV SCH (21:14)
[2018-02-05] MEDS: D5W IV SCH (21:14)
[2018-02-06 00:22] VITALS: BP 125/69; PULSE 78; TEMP 37.1; O2SAT 98
[2018-02-06] MEDS: [UNRECOGNIZED DRUG - OTHER] IV SCH ×3 (05:30→22:23)
[2018-02-06] MEDS: D5W IV SCH ×3 (05:30→22:23)
[2018-02-06] MEDS: POTASSIUM PHOSPHATE IV SCH ×3 (05:30→22:23)
[2018-02-06] MEDS: HEPARIN SOD 5000 UNIT/0.5 ML CARP SQ SCH ×2 (05:31→19:04)
[2018-02-06 07:14] VITALS: BP 141/77; PULSE 76; TEMP 36.3; O2SAT 97
[2018-02-06 07:18] LABS: HEMOGLOBIN 12.3 g/dL (14.0-18.0); MEAN CORPUSCULAR HEMOGLOBIN 32.1 pg (25-34); MEAN CORPUSCULAR HGB CONC 34.2 g/dl (32-36); MEAN PLATELET VOLUME 9.7 fL (7.4-10.4); PLATELET COUNT 115 K/uL (130-400); RED CELL DISTRIBUTION WIDTH CV 13.3 % (11.5-14.5); RED CELL DISTRIBUTION WIDTH SD 45.8 fL (36.4-46.3); WHITE BLOOD COUNT 5.98 K/uL (4.8-10.8)
[2018-02-06 07:40] LABS: ALBUMIN 2.2 gm/dl (3.4-5.0); CALCIUM 7.8 mg/dl (8.5-10.1); CREATININE 0.63 mg/dl (0.60-1.40); POTASSIUM 3.4 mmol/L (3.5-5.1)
[2018-02-06 07:46] LABS: PHOSPHORUS 2.7 mg/dl (2.5-4.9)
[2018-02-06] MEDS: CARTEOLOL HCL 1% OP SOLN 5 ML BTL OPB SCH (08:20)
--- NOTE | 2018-02-06 10:40 | Progress Note ---
Medicine Progress Note Date & Time of Visit: February 06, 2018 at 10:20 . Subjective CC: Follow-up visit for multiple problems. HPI: Admitted 02/03 after being found at home on floor. Timing and nature of fall unclear. Confusion at time of admission has improved. NPO due to silent aspiration noted on video swallow; pt unhappy that he cannot eat. No fever. No chest pain. No cough or SOB. No nausea or vomiting. No diarrhea. Chronic urinary hesitancy, no dysuria. ROS: as noted above in HPI . Objective Last 8 Hrs Date Time Temp Pulse Resp B/P (MAP) Pulse Ox O2 Delivery O2 Flow Rate FiO2 02/06/18 07:14 36.3 76 20 141/77 (98) 97 Room Air Physical Exam: General- sitting in chair; no distress Lungs- clear to auscultation; no respiratory distress Cardiovascular- RRR; no JVD; no pretibial edema Abdomen- + bowel sounds, soft, nontender Extremities- no cyanosis; no calf tenderness Neuro- alert, somewhat confused, resting tremor Skin- warm & dry . Laboratory Results: Last 24 Hours Test 02/06/18 06:07 02/06/18 07:04 Bedside Glucose 95 mg/dl White Blood Count 5.98 K/uL Red Blood Count 3.83 M/uL Hemoglobin 12.3 g/dL Hematocrit 36.0 % Mean Corpuscular Volume 94.0 fL Mean Corpuscular Hemoglobin 32.1 pg Mean Corpuscular Hemoglobin Concent 34.2 g/dl RDW Standard Deviation 45.8 fL RDW Coefficient of Variation 13.3 % Platelet Count 115 K/uL Mean Platelet Volume 9.7 fL Sodium Level 146 mmol/L Potassium Level 3.4 mmol/L Chloride Level 114 mmol/L Carbon Dioxide Level 27 mmol/L Anion Gap 5.0 mmol/L Blood Urea Nitrogen 10 mg/dl Creatinine 0.63 mg/dl Est Creatinine Clear Calc Drug Dose 60.8 ml/min Estimated GFR () 102.0 Estimated GFR (Non- 88.0 BUN/Creatinine Ratio 16.1 Random Glucose 112 mg/dl Calcium Level 7.8 mg/dl Phosphorus Level 2.7 mg/dl Magnesium Level 1.8 mg/dl Total Bilirubin 0.6 mg/dl Direct Bilirubin 0.1 mg/dl Aspartate Amino Transf (AST/SGOT) 52 U/L Alanine Aminotransferase (ALT/SGPT) 53 U/L Alkaline Phosphatase 45 U/L Total Protein 5.0 gm/dl Albumin 2.2 gm/dl Globulin 2.8 gm/dl Albumin/Globulin Ratio 0.8 Assessment & Plan ALTERED MENTAL STATUS Probable metabolic encephalopathy from dehydration and / or encephalopathy secondary to infection. Improved. Follow. UTI (present on admission) Urinalysis demonstrated nitrates, leukocyte esterase, WBCs, bacteria. Urine culture growing Enterobacter cloacae and gram positive cocci. Currently receiving ceftriaxone which will cover the Enterobacter. Adjust antibiotic coverage as necessary once gram positive cocci identified. POSSIBLE SEPSIS Met criteria for sepsis per Sepsis-1 definition and current CMS guidelines. Was tachycardic at time of presentation with a white count of 16,000. Hemodynamically stable. Serum lactate 1.9. Procalcitonin = 14.92. Most likely source of infection urinary tract as discussed above. Continue antibiotics pending blood culture results. Check f/u procalcitonin. DEHYDRATION BUN and creatinine at time of admission 40 and 1.19, respectively. BUN and creatinine today 10 and 0.63, respectively. Continue IV fluids. RHABDOMYOLYSIS Secondary to fall and/or immobilization. Total CPK 2161 --> 1160 --> 603. Continue IV fluids. Monitor renal function. ASPIRATION Witnessed episode of coughing while eating. No infiltrates on chest x-ray. Evaluated by STATION INSPECTOR. Videofluoroscopy demonstrated multiple episodes of silent aspiration. NPO status recommended by STATION INSPECTOR as safest option, but may not be acceptable to the patient. Will discuss management further with STATION INSPECTOR> MALNUTRITION Weight 51.2 kg, BMI 17.2. Serum albumin 2.7. Severe protein calorie malnutrition. Malnutrition may be secondary to combination of factors, including dysphagia with aspiration and social factors. Need to address options for nutrition as discussed above (?? PEG). Follow nutritional parameters. Dietitian consulted. FALLS Recurrent falls. Mechanism(s) uncertain. Has resting tremor. ? Parkinson's. Consult Neuro. PT / OT. GLAUCOMA Continue usual ophthalmic medications. VTE PROPHYLAXIS SQ heparin. Ambulate. DISPOSITION To be determined. Anticipate need for skilled care and possible long-term placement. Follow by [facility]. Consult Case Management. Met with HESHAM Hunt 02/05. She offered background information and will assist in decision-making as necessary. . Current Inpatient Medications: Current Inpatient Medications Medications (Trade) Dose Ordered Sig/Juan Francisco Route Start Time Stop Time Status Last Admin Dose Admin Ondansetron HCl (Zofran Inj) 4 mg Q6H PRN IV 02/03/18 15:15 03/05/18 15:14 Heparin Sodium (Porcine) (Heparin Sq 5000 Unit/0.5ml) 5,000 unit Q12H SQ 02/03/18 18:00 03/05/18 17:59 02/04/18 17:56 5,000 UNIT Ceftriaxone Sodium 1 gm/ Dextrose 50 ml @ 100 mls/hr Q24H IV 02/04/18 14:00 02/13/18 13:59 02/05/18 17:54 100 MLS/HR Carteolol HCl (Ocupress 1% Op-Substitute) 1 drops QAM OPB 02/04/18 08:00 03/06/18 08:59 02/06/18 08:20 1 DROPS Miconazole Nitrate (Desenex Powder) 1 appln PRN PRN EXT 02/04/18 14:15 03/06/18 14:14 Potassium Phosphate 21 mmol/ Dextrose/Sodium Chloride 1,007 ml @ 125 mls/hr Q8H4M IV 02/05/18 19:45 03/07/18 19:44 02/06/18 05:30 125 MLS/HR
[2018-02-06 10:52] VITALS: O2SAT 97
[2018-02-06] MEDS: CEFTRIAXONE SOD INJ 1 GM in DEXTROSE 5% ADD-VANTAGE 50ML 50 ML IV SCH (13:54)
[2018-02-06 15:07] VITALS: BP 164/88; PULSE 79; TEMP 36.5; O2SAT 96
[2018-02-06 23:58] VITALS: BP 147/83; PULSE 74; TEMP 36.4; O2SAT 98
[2018-02-07] MEDS: POTASSIUM PHOSPHATE IV SCH ×3 (04:23→21:13)
[2018-02-07] MEDS: D5W IV SCH ×3 (04:23→21:13)
[2018-02-07] MEDS: [UNRECOGNIZED DRUG - OTHER] IV SCH ×3 (04:23→21:13)
[2018-02-07] MEDS: HEPARIN SOD 5000 UNIT/0.5 ML CARP SQ SCH ×2 (05:32→17:47)
[2018-02-07 07:09] LABS: HEMOGLOBIN 12.5 g/dL (14.0-18.0); MEAN CELL VOLUME 92.3 fL (80-100); MEAN CORPUSCULAR HEMOGLOBIN 32.1 pg (25-34); MEAN CORPUSCULAR HGB CONC 34.7 g/dl (32-36); PLATELET COUNT 118 K/uL (130-400); RED CELL DISTRIBUTION WIDTH CV 12.9 % (11.5-14.5); RED CELL DISTRIBUTION WIDTH SD 43.6 fL (36.4-46.3); WHITE BLOOD COUNT 6.11 K/uL (4.8-10.8)
[2018-02-07 07:24] VITALS: BP 122/53; PULSE 74; TEMP 36.9; O2SAT 93
[2018-02-07 07:30] LABS: ALBUMIN 2.2 gm/dl (3.4-5.0); CALCIUM 7.6 mg/dl (8.5-10.1); CREATININE 0.55 mg/dl (0.60-1.40); POTASSIUM 3.3 mmol/L (3.5-5.1)
[2018-02-07 07:35] LABS: PHOSPHORUS 3.3 mg/dl (2.5-4.9); TOTAL PROTEIN 4.9 gm/dl (6.4-8.2)
[2018-02-07 08:00] VITALS: O2SAT 93
[2018-02-07] MEDS: CARTEOLOL HCL 1% OP SOLN 5 ML BTL OPB SCH (09:12)
[2018-02-07] MEDS: CEFTRIAXONE SOD INJ 1 GM in DEXTROSE 5% ADD-VANTAGE 50ML 50 ML IV SCH (14:07)
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
[2018-02-07 15:07] VITALS: BP 141/82; PULSE 76; TEMP 36.8; O2SAT 97
[2018-02-07 16:00] VITALS: O2SAT 93
--- NOTE | 2018-02-07 21:16 | Progress Note ---
Medicine Progress Note Date & Time of Visit: February 07, 2018 at 16:00 . Subjective CC: Follow-up visit for multiple problems. HPI: Admitted 02/03 after being found at home on floor. Timing and nature of fall unclear. Confusion has improved since admission. NPO due to silent aspiration noted on video swallow on 02/04. No fever. No chest pain. No cough or SOB. No nausea or vomiting. No diarrhea. Chronic urinary hesitancy, no dysuria. ROS: as noted above in HPI . Objective Last 8 Hrs Date Time Temp Pulse Resp B/P (MAP) Pulse Ox O2 Delivery O2 Flow Rate FiO2 02/07/18 16:00 93 Room Air 02/07/18 15:07 36.8 76 16 141/82 (101) 97 Room Air Physical Exam: General- lying in bed; no distress Lungs- clear to auscultation; no respiratory distress Cardiovascular- RRR; no JVD; no pretibial edema Abdomen- + bowel sounds, soft, nontender Extremities- no cyanosis; no calf tenderness Neuro- alert, less confused, resting tremor Skin- warm & dry . Laboratory Results: Last 24 Hours Test 02/07/18 06:19 02/07/18 08:33 02/07/18 11:54 02/07/18 18:09 White Blood Count 6.11 K/uL Red Blood Count 3.90 M/uL Hemoglobin 12.5 g/dL Hematocrit 36.0 % Mean Corpuscular Volume 92.3 fL Mean Corpuscular Hemoglobin 32.1 pg Mean Corpuscular Hemoglobin Concent 34.7 g/dl RDW Standard Deviation 43.6 fL RDW Coefficient of Variation 12.9 % Platelet Count 118 K/uL Mean Platelet Volume 10.0 fL Sodium Level 141 mmol/L Potassium Level 3.3 mmol/L Chloride Level 109 mmol/L Carbon Dioxide Level 27 mmol/L Anion Gap 6.0 mmol/L Blood Urea Nitrogen 7 mg/dl Creatinine 0.55 mg/dl Est Creatinine Clear Calc Drug Dose 69.6 ml/min Estimated GFR () 107.8 Estimated GFR (Non- 93.0 BUN/Creatinine Ratio 12.3 Random Glucose 110 mg/dl Calcium Level 7.6 mg/dl Phosphorus Level 3.3 mg/dl Magnesium Level 1.7 mg/dl Total Bilirubin 0.7 mg/dl Aspartate Amino Transf (AST/SGOT) 42 U/L Alanine Aminotransferase (ALT/SGPT) 49 U/L Alkaline Phosphatase 48 U/L Total Creatine Kinase 271 U/L Total Protein 4.9 gm/dl Albumin 2.2 gm/dl Globulin 2.7 gm/dl Albumin/Globulin Ratio 0.8 Procalcitonin 0.65 ng/ml Bedside Glucose 110 mg/dl 106 mg/dl 102 mg/dl Assessment & Plan SEPSIS Met criteria for sepsis per Sepsis-1 definition and current CMS guidelines. Was tachycardic at time of presentation with a white count of 16,000. Hemodynamically stable. Serum lactate 1.9. Procalcitonin = 14.92. Most likely source of infection urinary tract as discussed below. Continue ceftriaxone. Procalcitonin 14.92 --> 0.65. UTI (present on admission) Urinalysis demonstrated nitrates, leukocyte esterase, WBCs, bacteria. Urine culture growing Enterobacter cloacae and gamma Strep, not Enterococcus. Currently receiving ceftriaxone with improvement. Procalcitonin improving. Consider transition to oral therapy once able to take oral meds. ALTERED MENTAL STATUS Probable metabolic encephalopathy from dehydration and / or encephalopathy secondary to infection. Improved. Follow. DEHYDRATION BUN and creatinine at time of admission 40 and 1.19, respectively. BUN and creatinine today 7 and 0.55, respectively. Continue IV fluids. RHABDOMYOLYSIS Secondary to fall and/or immobilization. Total CPK 2161 --> 1160 --> 603 --> 271. Continue IV fluids. Monitor renal function. ASPIRATION Witnessed episode of coughing while eating. No infiltrates on chest x-ray. Evaluated by HARPSICHORD MAKER. Videofluoroscopy demonstrated multiple episodes of silent aspiration. NPO status recommended by HARPSICHORD MAKER as safest option, but may not be acceptable to the patient. Discussed management further with HARPSICHORD MAKER today. His neuro status has improved and swallowing function may have improved as well. Repeat video swallow planned for tomorrow 02/08. MALNUTRITION Weight 51.2 kg, BMI 17.2. Serum albumin 2.7. Severe protein calorie malnutrition. Malnutrition may be secondary to combination of factors, including dysphagia with aspiration and social factors. Need to address options for nutrition as discussed above (?? PEG). Follow nutritional parameters. Dietitian consulted. FALLS Recurrent falls. Mechanism(s) uncertain. Has resting tremor. ? Parkinson's. Neuro consulted. PT / OT. GLAUCOMA Continue usual ophthalmic medications. VTE PROPHYLAXIS SQ heparin. Ambulate. DISPOSITION To be determined. Anticipate need for skilled care and possible long-term placement. Follow by [facility]. Consult Case Management. . Current Inpatient Medications: Current Inpatient Medications Medications (Trade) Dose Ordered Sig/Juan Francisco Route Start Time Stop Time Status Last Admin Dose Admin Ondansetron HCl (Zofran Inj) 4 mg Q6H PRN IV 02/03/18 15:15 03/05/18 15:14 Heparin Sodium (Porcine) (Heparin Sq 5000 Unit/0.5ml) 5,000 unit Q12H SQ 02/03/18 18:00 03/05/18 17:59 02/07/18 05:32 5,000 UNIT Ceftriaxone Sodium 1 gm/ Dextrose 50 ml @ 100 mls/hr Q24H IV 02/04/18 14:00 02/13/18 13:59 02/07/18 14:07 100 MLS/HR Carteolol HCl (Ocupress 1% Op-Substitute) 1 drops QAM OPB 02/04/18 08:00 03/06/18 08:59 02/07/18 09:12 1 DROPS Miconazole Nitrate (Desenex Powder) 1 appln PRN PRN EXT 02/04/18 14:15 03/06/18 14:14 Potassium Phosphate 21 mmol/ Dextrose/Sodium Chloride 1,007 ml @ 125 mls/hr Q8H4M IV 02/05/18 19:45 03/07/18 19:44 02/07/18 21:13 125 MLS/HR
[2018-02-07 23:15] VITALS: BP 165/80; PULSE 78; TEMP 36.6; O2SAT 98
[2018-02-08] VITALS: O2SAT 93
[2018-02-08] MEDS: HEPARIN SOD 5000 UNIT/0.5 ML CARP SQ SCH ×2 (04:54→16:52)
[2018-02-08] MEDS: D5W IV SCH ×2 (04:54→12:27)
[2018-02-08] MEDS: [UNRECOGNIZED DRUG - OTHER] IV SCH ×2 (04:54→12:27)
[2018-02-08] MEDS: POTASSIUM PHOSPHATE IV SCH ×2 (04:54→12:27)
[2018-02-08 07:11] LABS: HEMATOCRIT 40.3 % (42-52); HEMOGLOBIN 13.9 g/dL (14.0-18.0); MEAN CELL VOLUME 92.2 fL (80-100); MEAN CORPUSCULAR HEMOGLOBIN 31.8 pg (25-34); MEAN CORPUSCULAR HGB CONC 34.5 g/dl (32-36); MEAN PLATELET VOLUME 9.4 fL (7.4-10.4); PLATELET COUNT 133 K/uL (130-400); RED CELL DISTRIBUTION WIDTH CV 12.8 % (11.5-14.5); RED CELL DISTRIBUTION WIDTH SD 43.4 fL (36.4-46.3); WHITE BLOOD COUNT 6.39 K/uL (4.8-10.8)
[2018-02-08 07:27] VITALS: BP 152/68; PULSE 73; TEMP 36.4; O2SAT 98
[2018-02-08 07:35] LABS: ALBUMIN 2.3 gm/dl (3.4-5.0); CALCIUM 8.1 mg/dl (8.5-10.1); CREATININE 0.65 mg/dl (0.60-1.40); POTASSIUM 3.9 mmol/L (3.5-5.1)
[2018-02-08 07:48] LABS: TOTAL PROTEIN 5.4 gm/dl (6.4-8.2)
[2018-02-08] MEDS: CARTEOLOL HCL 1% OP SOLN 5 ML BTL OPB SCH (08:01)
--- NOTE | 2018-02-08 11:40 | ELECTROENCEPHALOGRAPH REPORT ---
REQUESTING PHYSICIAN: Nisha Khan. CLINICAL DIAGNOSIS: Change in mental status. EEG DIAGNOSIS: Essentially normal during wakefulness. DESCRIPTION OF TRACING: This EEG was done as a bedside recording and is of reasonable technical quality. A simultaneous video analysis of patient movement and behavior was obtained. No stimulus parameters were utilized. Drowsiness and light sleep were not recorded. There are a number of muscle movement artifacts but relatively few allowing for the movements seen on the screen and the tracing is overall of good technical quality. Under these conditions, there is evidence for normal background rhythm in the alpha range of up to 10 Hz of maximum frequency and 30 microvolts of maximum amplitude. This is maximum posterior head regions bilaterally symmetrical. Polymorphic mid frequency theta activity of low voltage is seen over all head regions without clear focal or regional predominance. Anterior head region maximum bilaterally symmetrical low voltage fast activity in the beta range is present. At no time during the waking tracing is there evidence for potentially epileptogenic activity in the form of polyspike or spike wave bursts, focal sharp waves or focal spikes INTERPRETATION: This EEG is essentially normal during wakefulness without evidence for focal or generalized encephalopathy and without evidence for potentially epileptogenic activity. MTDD
[2018-02-08] MEDS: CEFTRIAXONE SOD INJ 1 GM in DEXTROSE 5% ADD-VANTAGE 50ML 50 ML IV SCH (13:54)
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
--- NOTE | 2018-02-08 15:05 | DIAGNOSTIC IMAGING REPORT ---
VIDEO SWALLOW STUDY CLINICAL HISTORY: Silent aspiration. COMPARISON STUDY: Video swallow study dated 02/04/2018. Fluoroscopy time: 4.0 minutes. FINDINGS: Fluoroscopic guidance was provided to the Department of Speech Pathology in performing a video swallow study. The patient consumed barium-impregnated pudding, cracker with paste, nectar-thick liquid, and thin barium while the swallowing mechanism was observed in real-time. Aspiration was identified on the nectar-thick liquid and thin barium textures. There was prolonged time of mastication with the pudding and cracker with paste textures. No aspiration was clearly seen. Pharyngeal retention was observed. Esophageal dysmotility is noted. IMPRESSION: 1. Aspiration was seen with the nectar-thick liquid and thin barium textures. 2. No aspiration was seen with the remaining sampled textures. 3. See dedicated speech pathology report for detailed findings and recommendations. Dictated: 02/08/2018 2:16 PM Transcribed: 02/08/2018 3:04 PM [email or web address] Electronically signed by: Dave Gray M.D. 02/08/2018 3:07 PM Dictated Date/Time: 02/08/2018 2:16 PM
[2018-02-08 15:43] VITALS: BP 143/80; PULSE 83; TEMP 36.6; O2SAT 99
[2018-02-08 16:03] VITALS: O2SAT 99
[2018-02-08] MEDS ORDERED: GADAVIST IV PRN (18:30)
--- NOTE | 2018-02-08 18:32 | DIAGNOSTIC IMAGING REPORT ---
BRAIN COMBO CLINICAL HISTORY: 87 years-old Male presenting with MS change r/o lesions and abnormalities. TECHNIQUE: Multisequence, multiplanar MR imaging of the brain was performed before and after the administration of intravenous contrast. IV contrast: 5 mL of Gadavist. COMPARISON: Noncontrast CT head from 02/03/2018. FINDINGS: Proportional ventricular and sulcal prominence, likely age-related parenchymal volume loss. Periventricular and subcortical white matter T2/FLAIR hyperintensity, nonspecific but likely indicative of chronic small vessel ischemic change. No mass effect or midline shift. No restricted diffusion to suggest acute ischemia. No hemorrhage. No extra-axial fluid collection. T2 skull base flow voids preserved. No abnormal parenchymal enhancement. Bone marrow signal intensity within the calvarium within normal limits. Mucosal thickening in posterior left ethmoid air cells and sphenoid sinuses. IMPRESSION: 1. Chronic small vessel ischemic change. No acute intracranial abnormality. No abnormal parenchymal enhancement. Electronically signed by: Sascha Lauren M.D. 02/08/2018 6:31 PM Dictated Date/Time: 02/08/2018 6:26 PM
--- NOTE | 2018-02-08 19:16 | Progress Note ---
Medicine Progress Note Date & Time of Visit: February 08, 2018 at 19:09. Subjective seen resting in bed, comfortable states he feels fine overall tolerated lunch with no problems denies chest pain, dyspnea, palpitations, dizziness no abdominal pain no other symptoms Objective Last 8 Hrs Date Time Temp Pulse Resp B/P (MAP) Pulse Ox O2 Delivery O2 Flow Rate FiO2 02/08/18 16:03 99 Room Air 02/08/18 15:43 36.6 83 20 143/80 (101) 99 Room Air Physical Exam: General- oriented x 3, not in distress, speaks in sentences with no effort Head- atraumatic Eyes- PERRL, EOMI, anicteric ENT- oropharynx clear Neck- supple, no JVD, no adenopathy, no thyromegaly Lungs- clear to auscultation BL Heart- regular rhythm; no murmur, normal rate Abdomen- normal bowel sounds, soft, nontender, non distended Extremities- no pretibial edema, no calf tenderness; peripheral pulses intact Neuro- alert, oriented x 3; no gross focal deficits Skin- warm & dry Laboratory Results: Last 24 Hours Test 02/08/18 06:50 White Blood Count 6.39 K/uL Red Blood Count 4.37 M/uL Hemoglobin 13.9 g/dL Hematocrit 40.3 % Mean Corpuscular Volume 92.2 fL Mean Corpuscular Hemoglobin 31.8 pg Mean Corpuscular Hemoglobin Concent 34.5 g/dl RDW Standard Deviation 43.4 fL RDW Coefficient of Variation 12.8 % Platelet Count 133 K/uL Mean Platelet Volume 9.4 fL Sodium Level 140 mmol/L Potassium Level 3.9 mmol/L Chloride Level 107 mmol/L Carbon Dioxide Level 29 mmol/L Anion Gap 4.0 mmol/L Blood Urea Nitrogen 5 mg/dl Creatinine 0.65 mg/dl Est Creatinine Clear Calc Drug Dose 58.9 ml/min Estimated GFR () 100.7 Estimated GFR (Non- 86.9 BUN/Creatinine Ratio 8.2 Random Glucose 102 mg/dl Calcium Level 8.1 mg/dl Total Bilirubin 0.7 mg/dl Aspartate Amino Transf (AST/SGOT) 40 U/L Alanine Aminotransferase (ALT/SGPT) 58 U/L Alkaline Phosphatase 57 U/L Total Protein 5.4 gm/dl Albumin 2.3 gm/dl Globulin 3.1 gm/dl Albumin/Globulin Ratio 0.7 Vitamin B12 Level 325 pg/mL Folate 11.49 ng/mL Thyroid Stimulating Hormone (TSH) 4.660 uIu/ml Date/Time Source Procedure Growth Status 02/08/18 16:15 Stool Shiga Toxin Test Pending Received 02/08/18 16:15 Stool Stool Culture Pending Received Assessment & Plan SEPSIS LIKELY FROM UTI Met criteria for sepsis per Sepsis-1 definition and current CMS guidelines. Was tachycardic at time of presentation with a white count of 16,000. Serum lactate 1.9. Procalcitonin = 14.92. --> 0.65. UTI (present on admission) Urinalysis demonstrated nitrates, leukocyte esterase, WBCs, bacteria. Urine culture growing Enterobacter cloacae and gamma Strep, not Enterococcus. -- improving -- continue Ceftri ALTERED MENTAL STATUS, Resolved Probable metabolic encephalopathy from dehydration and / or encephalopathy secondary to infection. DEHYDRATION BUN and creatinine at time of admission 40 and 1.19, respectively. BUN and creatinine today 7 and 0.55, respectively. -- has received IV fluids RHABDOMYOLYSIS Secondary to fall and/or immobilization. Total CPK 2161 --> 1160 --> 603 --> 271. resolved after IV fluids ASPIRATION Witnessed episode of coughing while eating. No infiltrates on chest x-ray. Evaluated by LANDSCAPE PAINTER. Videofluoroscopy demonstrated multiple episodes of silent aspiration. NPO status recommended by LANDSCAPE PAINTER as safest option, but may not be acceptable to the patient. -- repeat Video Swallow: improving -- soft diet started today monitor discussed with LANDSCAPE PAINTER MALNUTRITION Weight 51.2 kg, BMI 17.2. Serum albumin 2.7. Severe protein calorie malnutrition. Malnutrition may be secondary to combination of factors, including dysphagia with aspiration and social factors. Need to address options for nutrition as discussed above Follow nutritional parameters. Dietitian consulted. FALLS Recurrent falls. Mechanism(s) uncertain. Has resting tremor. ? Parkinson's. Neuro consulted. PT / OT. GLAUCOMA Continue usual ophthalmic medications. VTE PROPHYLAXIS SQ heparin. Ambulate. DISPOSITION To be determined. Anticipate need for skilled care and possible long-term placement. Follow by Office of Aging. Consult Case Management. . Current Inpatient Medications: Current Inpatient Medications Medications (Trade) Dose Ordered Sig/Juan Francisco Route Start Time Stop Time Status Last Admin Dose Admin Ondansetron HCl (Zofran Inj) 4 mg Q6H PRN IV 5/10/18 15:15 03/05/18 15:14 Heparin Sodium (Porcine) (Heparin Sq 5000 Unit/0.5ml) 5,000 unit Q12H SQ 02/03/18 18:00 03/05/18 17:59 02/07/18 05:32 5,000 UNIT Ceftriaxone Sodium 1 gm/ Dextrose 50 ml @ 100 mls/hr Q24H IV 02/04/18 14:00 02/13/18 13:59 02/08/18 13:54 100 MLS/HR Carteolol HCl (Ocupress 1% Op-Substitute) 1 drops QAM OPB 02/04/18 08:00 03/06/18 08:59 02/08/18 08:01 1 DROPS Miconazole Nitrate (Desenex Powder) 1 appln PRN PRN EXT 02/04/18 14:15 03/06/18 14:14 Potassium Phosphate 21 mmol/ Dextrose/Sodium Chloride 1,007 ml @ 125 mls/hr Q8H4M IV 02/05/18 19:45 03/07/18 19:44 02/08/18 12:27 125 MLS/HR Gadobutrol (Gadavist) 5 mmol UD PRN IV 02/08/18 18:30 02/12/18 18:29
[2018-02-08 23:13] VITALS: BP 154/78; PULSE 77; TEMP 36.6; O2SAT 98
[2018-02-09] MEDS: HEPARIN SOD 5000 UNIT/0.5 ML CARP SQ SCH ×2 (05:58→18:16)
[2018-02-09 06:58] VITALS: BP 152/79; PULSE 76; TEMP 36.8; O2SAT 97
[2018-02-09] MEDS: CARTEOLOL HCL 1% OP SOLN 5 ML BTL OPB SCH (07:44)
[2018-02-09 08:07] LABS: CALCIUM 8.2 mg/dl (8.5-10.1); CREATININE 0.69 mg/dl (0.60-1.40); POTASSIUM 3.8 mmol/L (3.5-5.1)
[2018-02-09] MEDS: CEFTRIAXONE SOD INJ 1 GM in DEXTROSE 5% ADD-VANTAGE 50ML 50 ML IV SCH (13:46)
[2018-02-09 15:21] VITALS: BP 107/63; PULSE 77; TEMP 36.7; O2SAT 95
[2018-02-09] MEDS ORDERED: MAGNESIUM SULFATE 1GM / D5W 100 ML IV ONE (15:21)
--- NOTE | 2018-02-09 15:35 | Neurology Progress Notes ---
Neurology Progress Note Date of Service February 09, 2018. Madelyn Devlin is an 87 year old male with a PMH of bladder calculus who presents after being found at home after a fall. He lives alone and is visited by a home health agency frequently. Ambulates by walker he has meals on wheels 3 x week then eat peanut butter bread and cereal other days. He was found on the floor by home health covered in feces. An ambulance was called but patient refused to come to hospital. His landlord was asked to check on him the next day. He was found to be lying on the floor covered in urine and feces. An ambulance was called and he states he was forced to come to the hospital. He thinks he was just looking for something under his bed. Office of Aging is aware of patient's case and have been involved in the past. POA notes confusion and generalized weakness compared to baseline. He is unclear of any events proceeding falls. Does not take any home medications besides eye drops for glaucoma. Today he seems more alert and he is sitting up in bedside chair. He states he is not walking any better but doesn't think rehab will help. denies recent falls , head injury, CP, SOB, abdominal pain, weakness, numbness tingling, N, V. Objective Date Time Temp Pulse Resp B/P (MAP) Pulse Ox O2 Delivery O2 Flow Rate FiO2 02/09/18 15:21 36.7 77 16 107/63 (78) 95 02/09/18 08:00 Room Air 02/09/18 06:58 36.8 76 18 152/79 (103) 97 Room Air 02/09/18 00:06 Room Air 02/08/18 23:13 36.6 77 16 154/78 (103) 98 Room Air 02/08/18 21:55 Room Air 02/08/18 16:03 99 Room Air 02/08/18 15:43 36.6 83 20 143/80 (101) 99 Room Air Last 24 Hours Test 02/09/18 07:20 Sodium Level 140 mmol/L Potassium Level 3.8 mmol/L Chloride Level 107 mmol/L Carbon Dioxide Level 27 mmol/L Anion Gap 6.0 mmol/L Blood Urea Nitrogen 7 mg/dl Creatinine 0.69 mg/dl Est Creatinine Clear Calc Drug Dose 55.5 ml/min Estimated GFR () 98.2 Estimated GFR (Non- 84.8 BUN/Creatinine Ratio 10.2 Random Glucose 93 mg/dl Calcium Level 8.2 mg/dl Magnesium Level 1.7 mg/dl Imaging: MRI brain with and without- Chronic small vessel ischemic change. No acute intracranial abnormality. No abnormal parenchymal enhancement. Exam: Gen: alert NAD lungs CTA CV RRR strength- hand medicine technologist biceps triceps 5/5 bilaterally, hip flex against gravity but not resistance. plantar flex ext 5/5 bilaterally sensation intact to light and cool touch Current Inpatient Medications Medications (Trade) Dose Ordered Sig/Juan Francisco Route Start Time Stop Time Status Last Admin Dose Admin Ondansetron HCl (Zofran Inj) 4 mg Q6H PRN IV 02/03/18 15:15 03/05/18 15:14 Heparin Sodium (Porcine) (Heparin Sq 5000 Unit/0.5ml) 5,000 unit Q12H SQ 02/03/18 18:00 03/05/18 17:59 02/07/18 05:32 5,000 UNIT Ceftriaxone Sodium 1 gm/ Dextrose 50 ml @ 100 mls/hr Q24H IV 02/04/18 14:00 02/13/18 13:59 02/09/18 13:46 100 MLS/HR Carteolol HCl (Ocupress 1% Op-Substitute) 1 drops QAM OPB 02/04/18 08:00 03/06/18 08:59 02/09/18 07:44 1 DROPS Miconazole Nitrate (Desenex Powder) 1 appln PRN PRN EXT 02/04/18 14:15 03/06/18 14:14 Gadobutrol (Gadavist) 5 mmol UD PRN IV 02/08/18 18:30 02/12/18 18:29 Magnesium Sulfate 100 ml @ 100 mls/hr NOW ONCE IV 02/09/18 15:21 02/09/18 16:20 Impression 87 year old male increased weakness, tremor, dysphagia Plan 1. RPR- nonreactive, folate, B12- WNL, TSH- high will defer to primary team whether needs treatment 2. PT/OT for discharge needs 3. LOC- EEG no seizure activity 4. MRI brain with and without -evaluate for lesions or malformation- no acute findings 5. tremor -appears to be essential tremor, difficult to assess walking due to generalize weakness, does not have resting tremor or decreased blink 6. fall precautions 7. care mgt for discharge -may need higher level of care 8. will need to be evaluated as out patient for possible dementia 9. will try some sinemet 25/100 mg BID with meals x 5 days then increase to TID with meals follow up neurology 2-3 weeks after discharge from rehab, Nisha Villasenor MD , or Nisha Khan PAC schedule I have seen and discussed above patient with Dr Nisha Villasenor, neurology Nursing notes very poor initiation of movement in LE. MRI, no infarct, no evidnence of NPH. Rec trial with sinemet for lower 1/2 parkinsonism monitorting for increased confusion. SKYLAR Villasenor MD
[2018-02-09] MEDS: CARBIDOPA/LEVODOPA 25/100MG TAB PO SCH ×2 (17:15→18:35)
--- NOTE | 2018-02-09 22:05 | Progress Note ---
Medicine Progress Note Date & Time of Visit: February 09, 2018 at 22:00. Subjective seen resting in bedside chair comfortable tolerating diet well no abdominal pain no other symptoms oriented x 2 Objective Last 8 Hrs Date Time Temp Pulse Resp B/P (MAP) Pulse Ox O2 Delivery O2 Flow Rate FiO2 02/09/18 16:35 Room Air 02/09/18 15:21 36.7 77 16 107/63 (78) 95 Physical Exam: General- oriented x 3, not in distress, speaks in sentences with no effort Head- atraumatic Eyes-anicteric Neck- supple, no JVD Lungs- clear to auscultation BL Heart- regular rhythm; no murmur, normal rate Abdomen- normal bowel sounds, soft, nontender, non distended Extremities- no pretibial edema, no calf tenderness; peripheral pulses intact Neuro- alert, oriented x 2; no gross focal deficits Skin- warm & dry Laboratory Results: Last 24 Hours Test 02/09/18 07:20 Sodium Level 140 mmol/L Potassium Level 3.8 mmol/L Chloride Level 107 mmol/L Carbon Dioxide Level 27 mmol/L Anion Gap 6.0 mmol/L Blood Urea Nitrogen 7 mg/dl Creatinine 0.69 mg/dl Est Creatinine Clear Calc Drug Dose 55.5 ml/min Estimated GFR () 98.2 Estimated GFR (Non- 84.8 BUN/Creatinine Ratio 10.2 Random Glucose 93 mg/dl Calcium Level 8.2 mg/dl Magnesium Level 1.7 mg/dl Assessment & Plan SEPSIS LIKELY FROM UTI, ENTEROCOCCUS CLOACAE Met criteria for sepsis per Sepsis-1 definition and current CMS guidelines. Was tachycardic at time of presentation with a white count of 16,000. Serum lactate 1.9. Procalcitonin = 14.92. --> 0.65. UTI (present on admission), ENTEROCOCCUS CLOACAE Urinalysis demonstrated nitrates, leukocyte esterase, WBCs, bacteria. Urine culture growing Enterobacter cloacae and gamma Strep, not Enterococcus. -- improving -- continue Ceftriaxone 6/10 days transition to Cefuroxime ALTERED MENTAL STATUS, Resolved Probable metabolic encephalopathy from dehydration and / or encephalopathy secondary to infection. DEHYDRATION BUN and creatinine at time of admission 40 and 1.19, respectively. BUN and creatinine today 7 and 0.55, respectively. -- has received IV fluids RHABDOMYOLYSIS Secondary to fall and/or immobilization. Total CPK 2161 --> 1160 --> 603 --> 271. resolved after IV fluids ASPIRATION Witnessed episode of coughing while eating. No infiltrates on chest x-ray. Evaluated by FIELD INSTALLER. Videofluoroscopy demonstrated multiple episodes of silent aspiration. NPO status recommended by FIELD INSTALLER as safest option, but may not be acceptable to the patient. -- repeat Video Swallow: improving -- soft diet started, tolerated monitor discussed with FIELD INSTALLER MALNUTRITION Weight 51.2 kg, BMI 17.2. Serum albumin 2.7. Severe protein calorie malnutrition. Malnutrition may be secondary to combination of factors, including dysphagia with aspiration and social factors. Need to address options for nutrition as discussed above Follow nutritional parameters. Dietitian consulted. FALLS Recurrent falls. Mechanism(s) uncertain. Has resting tremor. ? Parkinson's. Neuro consulted: Sinemet BID x 5 days, then TID ff up with Neuro in 2-3 weeks PT / OT. GLAUCOMA Continue usual ophthalmic medications. VTE PROPHYLAXIS SQ heparin. Ambulate. DISPOSITION transition to [facility] tomorrow Follow by Office of Aging. Current Inpatient Medications: Current Inpatient Medications Medications (Trade) Dose Ordered Sig/Juan Francisco Route Start Time Stop Time Status Last Admin Dose Admin Ondansetron HCl (Zofran Inj) 4 mg Q6H PRN IV 02/03/18 15:15 03/05/18 15:14 Heparin Sodium (Porcine) (Heparin Sq 5000 Unit/0.5ml) 5,000 unit Q12H SQ 02/03/18 18:00 03/05/18 17:59 02/09/18 18:16 5,000 UNIT Ceftriaxone Sodium 1 gm/ Dextrose 50 ml @ 100 mls/hr Q24H IV 02/04/18 14:00 02/13/18 13:59 02/09/18 13:46 100 MLS/HR Carteolol HCl (Ocupress 1% Op-Substitute) 1 drops QAM OPB 02/04/18 08:00 03/06/18 08:59 02/09/18 07:44 1 DROPS Miconazole Nitrate (Desenex Powder) 1 appln PRN PRN EXT 02/04/18 14:15 03/06/18 14:14 Gadobutrol (Gadavist) 5 mmol UD PRN IV 02/08/18 18:30 02/12/18 18:29 Carbidopa/Levodopa (Sinemet 25/ 100MG Tab) 1 tab BIDM PO 02/09/18 17:15 02/14/18 08:01 Carbidopa/Levodopa (Sinemet 25/ 100MG Tab) 1 tab TIDM PO 02/14/18 12:00 03/11/18 11:59
[2018-02-09 23:05] VITALS: BP 133/74; PULSE 79; TEMP 36.9; O2SAT 97
[2018-02-10] MEDS: HEPARIN SOD 5000 UNIT/0.5 ML CARP SQ SCH (05:42)
[2018-02-10 07:10] VITALS: BP 146/75; PULSE 76; TEMP 36.8; O2SAT 96
[2018-02-10 08:10] VITALS: O2SAT 99
[2018-02-10 08:16] LABS: CALCIUM 8.4 mg/dl (8.5-10.1); CREATININE 0.72 mg/dl (0.60-1.40); POTASSIUM 3.9 mmol/L (3.5-5.1)
[2018-02-10] MEDS: CARBIDOPA/LEVODOPA 25/100MG TAB PO SCH (08:50)
[2018-02-10] MEDS: CARTEOLOL HCL 1% OP SOLN 5 ML BTL OPB SCH (08:50)
[2018-02-10] MEDS: CEFTRIAXONE SOD INJ 1 GM in DEXTROSE 5% ADD-VANTAGE 50ML 50 ML IV SCH (14:04)
--- NOTE | 2018-02-10 14:52 | Progress Note ---
Medicine Progress Note Date & Time of Visit: February 10, 2018 at 14:32. Subjective seen resting in bed comfortable states he feels better in good spirits, conversant denies abdominal pain, nausea tolerating diet well, no problems no other symptoms states he is ready for discharge today Objective Last 8 Hrs Date Time Temp Pulse Resp B/P (MAP) Pulse Ox O2 Delivery O2 Flow Rate FiO2 02/10/18 08:10 99 Room Air 02/10/18 07:10 36.8 76 18 146/75 (98) 96 Room Air Physical Exam: General- oriented x 3, not in distress, speaks in sentences with no effort Eyes-anicteric Neck- no JVD Lungs- clear to auscultation BL, no rales/wheezes Heart- regular rhythm; no murmur, normal rate Abdomen- normal bowel sounds, soft, nontender, non distended Extremities- no pretibial edema, no calf tenderness; peripheral pulses intact Neuro- alert, oriented x 2; no gross focal deficits Skin- warm & dry Laboratory Results: Last 24 Hours Test 02/10/18 07:01 Sodium Level 139 mmol/L Potassium Level 3.9 mmol/L Chloride Level 107 mmol/L Carbon Dioxide Level 26 mmol/L Anion Gap 6.0 mmol/L Blood Urea Nitrogen 12 mg/dl Creatinine 0.72 mg/dl Est Creatinine Clear Calc Drug Dose 53.2 ml/min Estimated GFR () 96.5 Estimated GFR (Non- 83.3 BUN/Creatinine Ratio 16.5 Random Glucose 92 mg/dl Calcium Level 8.4 mg/dl Magnesium Level 2.1 mg/dl Assessment & Plan SEPSIS LIKELY FROM UTI, ENTEROCOCCUS CLOACAE Met criteria for sepsis per Sepsis-1 definition and current CMS guidelines. Was tachycardic at time of presentation with a white count of 16,000. Serum lactate 1.9. Procalcitonin = 14.92. --> 0.65. UTI (present on admission), ENTEROCOCCUS CLOACAE Urinalysis demonstrated nitrates, leukocyte esterase, WBCs, bacteria. Urine culture growing Enterobacter cloacae and gamma Strep, not Enterococcus. -- improving -- given Ceftriaxone 7 days continue 3 more days of Cefuroxime 250mg po BID ALTERED MENTAL STATUS, Resolved Probable metabolic encephalopathy from dehydration and / or encephalopathy secondary to infection. DEHYDRATION BUN and creatinine at time of admission 40 and 1.19, respectively. -- has received IV fluids crea improved to 0.7 RHABDOMYOLYSIS Secondary to fall and/or immobilization. Total CPK 2161 --> 1160 --> 603 --> 271. resolved after IV fluids MODERATE OROPHARYNGEAL DYSPHAGIA Witnessed episode of coughing while eating. No infiltrates on chest x-ray. Evaluated by READING ASSISTANT. Videofluoroscopy demonstrated multiple episodes of silent aspiration. -- repeat Video Swallow: improving -- recommendations by Speech Therapy: This patient presents with moderate oropharyngeal dysphagia and mild esophageal dysfunction. Swallow function did improve however the patient is at a HIGH risk for aspiration. Recommendations are as follows: 1. Mechanical soft diet, thin liquids. NO mixed consistencies (such as cold cereal in milk, soups with noodles and thin broth etc). 2. Aspiration precautions, NO straws, fully upright for meals and for 30 minutes after meals. 3. Stringent oral care to include brushing all surfaces of the mouth and tongue prior to and after meals, and before bed. 4. Double effortful swallow with each bite/sip of food. 5. Follow up READING ASSISTANT services at [facility] on discharge. Ensure pt getting appropriate diet and implementing all aspiration precautions/compensatory strategies MALNUTRITION Weight 51.2 kg, BMI 17.2. Serum albumin 2.7. Severe protein calorie malnutrition. Malnutrition may be secondary to combination of factors, including dysphagia with aspiration and social factors. FALLS, POSSIBLE PARKINSON Recurrent falls. Mechanism(s) uncertain. Has resting tremor Possible Parkinson's. Neuro consulted: Sinemet BID x 5 days, then TID monitor for confusion, fall precautions ff up with Neuro in 2-3 weeks continue PT / OT GLAUCOMA Continue usual ophthalmic medications. VTE PROPHYLAXIS given SQ heparin. Ambulate. DISPOSITION transition to [facility] follow up with Primary Care Physician c/o [facility] Current Inpatient Medications: Current Inpatient Medications Medications (Trade) Dose Ordered Sig/Juan Francisco Route Start Time Stop Time Status Last Admin Dose Admin Ondansetron HCl (Zofran Inj) 4 mg Q6H PRN IV 02/03/18 15:15 03/05/18 15:14 Heparin Sodium (Porcine) (Heparin Sq 5000 Unit/0.5ml) 5,000 unit Q12H SQ 02/03/18 18:00 03/05/18 17:59 02/10/18 05:42 5,000 UNIT Ceftriaxone Sodium 1 gm/ Dextrose 50 ml @ 100 mls/hr Q24H IV 02/04/18 14:00 02/13/18 13:59 02/10/18 14:04 100 MLS/HR Carteolol HCl (Ocupress 1% Op-Substitute) 1 drops QAM OPB 02/04/18 08:00 03/06/18 08:59 02/10/18 08:50 1 DROPS Miconazole Nitrate (Desenex Powder) 1 appln PRN PRN EXT 02/04/18 14:15 03/06/18 14:14 Gadobutrol (Gadavist) 5 mmol UD PRN IV 02/08/18 18:30 02/12/18 18:29 Carbidopa/Levodopa (Sinemet 25/ 100MG Tab) 1 tab BIDM PO 02/09/18 17:15 02/14/18 08:01 02/10/18 08:50 1 TAB Carbidopa/Levodopa (Sinemet 25/ 100MG Tab) 1 tab TIDM PO 02/14/18 12:00 03/11/18 11:59
[2018-02-10] MEDS ORDERED: MCTP EXT ×2 (14:55)
[2018-02-10] MEDS ORDERED: CARB25TA2 PO ×4 (14:55)
[2018-02-10] MEDS ORDERED: CEFU1TAB33 PO ×2 (14:55)
--- NOTE | 2018-02-10 15:00 | Discharge Instructions ---
Discharge Instructions Date of Service February 10, 2018. Admission Reason for Admission: Altered Mental Status, Dehydration, Syncope Discharge Discharge Diagnosis / Problem: ALTERED MENTAL STATUS, URINARY TRACT INFECTION Discharge Goals Goal(s): Diagnostic testing, Therapeutic intervention Activity Recommendations Activity Level: Assistance Required Therapies: Physical Therapy, Occupational Therapy, Speech Therapy . Additional Information Patient informed of condition: Yes Advance Directives: No (unknown) DNR: Yes Level of Care: Skilled Communicable Disease: No Prognosis: Improving Instructions / Follow-Up Instructions / Follow-Up FOLLOW SPEECH THERAPY RECOMMENDATIONS: This patient presents with moderate oropharyngeal dysphagia and mild esophageal dysfunction. Swallow function did improve however the patient is at a HIGH risk for aspiration. Recommendations are as follows: 1. Mechanical soft diet, thin liquids. NO mixed consistencies (such as cold cereal in milk, soups with noodles and thin broth etc). 2. Aspiration precautions, NO straws, fully upright for meals and for 30 minutes after meals. 3. Stringent oral care to include brushing all surfaces of the mouth and tongue prior to and after meals, and before bed. 4. Double effortful swallow with each bite/sip of food. 5. Follow up BORING MACHINE FEEDER services at [facility] on discharge. Ensure pt getting appropriate diet and implementing all aspiration precautions/compensatory strategies FALL PRECAUTIONS. MONITOR FOR CONFUSION. PLEASE REFER TO ACCOMPANYING DISCHARGE SUMMARY FOR FURTHER DETAILS. Current Hospital Diet Patient's current hospital diet: Regular Diet Discharge Diet Recommended Diet: Regular Diet Diet Texture: Mechanical Soft (ground) Procedures Procedures Performed: VIDEOFLUOROSCOPIC SWALLOW EXAM, CHEST CT, ABDOMINAL CT Pending Studies Studies pending at discharge: no Physician Orders On Transfer Special Precautions: FOLLOW SPEECH THERAPY RECOMMENDATIONS: This patient presents with moderate oropharyngeal dysphagia and mild esophageal dysfunction. Swallow function did improve however the patient is at a HIGH risk for aspiration. Recommendations are as follows: 1. Mechanical soft diet, thin liquids. NO mixed consistencies (such as cold cereal in milk, soups with noodles and thin broth etc). 2. Aspiration precautions, NO straws, fully upright for meals and for 30 minutes after meals. 3. Stringent oral care to include brushing all surfaces of the mouth and tongue prior to and after meals, and before bed. 4. Double effortful swallow with each bite/sip of food. 5. Follow up BORING MACHINE FEEDER services at SNF on discharge. Ensure pt getting appropriate diet and implementing all aspiration precautions/compensatory strategies FALL PRECAUTIONS. MONITOR FOR CONFUSION. PLEASE REFER TO ACCOMPANYING DISCHARGE SUMMARY FOR FURTHER DETAILS. Medical Emergencies . Who to Call and When: Medical Emergencies: If at any time you feel your situation is an emergency, please call 911 immediately. . Non-Emergent Contact Non-Emergency issues call your: Primary Care Provider Call Non-Emergent contact if: you have a fever . Past History Medical & Surgical History: (1) Glaucoma (2) Lumbar transverse process fracture (3) Rhabdomyolysis (4) UTI (urinary tract infection) (5) Altered mental status (6) H/O hernia repair . "Provider Documentation" section prepared by Demian Warner. . Core Measure Problem Core Measures: None
--- NOTE | 2018-02-10 15:03 | Discharge Summary ---
Discharge Summary Date of Service February 10, 2018. Discharge Summary Admission Date: February 03, 2018 at 16:15 Discharge Date: February 10, 2018 Discharge Disposition: snf facility Principal Diagnosis: SEPSIS LIKELY FROM UTI, ENTEROCOCCUS CLOACAE Secondary Diagnoses/Problems: Please refer to hospital course below. Procedures: CT HEAD WITHOUT CONTRAST (CT) CLINICAL HISTORY: Trauma. Confusion. COMPARISON STUDY: 06/18/2016 TECHNIQUE: Axial CT of the brain is performed from the vertex to the skull base. IV contrast was not administered for this examination. A dose lowering technique was utilized adhering to the principles of ALARA. CT DOSE: 1014.09 mGy.cm FINDINGS: No intra or extra-axial mass lesions are visualized. There is no CT evidence of acute cortical infarction. There is no evidence of midline shift. There is no acute hemorrhage. No calvarial fractures are visualized. There are patchy white matter hypodensities likely on a small vessel basis. There is mild ventricular dilatation, finding felt to be secondary to volume loss There is opacification of several left-sided ethmoid air cells. IMPRESSION: No acute intracranial findings [~ rep ct add3]] ABD/PELVIS NO IV OR ORAL CONT CT DOSE: 345.01 mGy.cm HISTORY: Infection hx of bladder ca/complicated UTI TECHNIQUE: Multiaxial CT images of the abdomen and pelvis were performed without contrast. A dose lowering technique was utilized adhering to the principles of ALARA. COMPARISON STUDY: 06/18/2016 FINDINGS: Lung bases are clear. Configuration of the liver spleen and pancreas remain unremarkable. 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 These are similar compared to the prior study. No evidence for hydronephrosis. Bowel pattern is considered nonobstructive. There is a left posterior bladder calculus unchanged in the prior study. There is nodular process anterior aspect central prostate also unchanged. There is a left inguinal hernia containing a loop of bowel unchanged. This shows no obstructive characteristics. IMPRESSION: 1. Chronic and pre-existing changes with no acute process of the abdomen or pelvis. 2. Unchanged bladder calculus, left inguinal hernia, and bilateral renal peripelvic cysts as compared to the prior study. 3. Nonobstructive bowel pattern. [~ rep ct add3]] BRAIN COMBO CLINICAL HISTORY: 87 years-old Male presenting with MS change r/o lesions and abnormalities. TECHNIQUE: Multisequence, multiplanar MR imaging of the brain was performed before and after the administration of intravenous contrast. IV contrast: 5 mL of Gadavist. COMPARISON: Noncontrast CT head from 02/03/2018. FINDINGS: Proportional ventricular and sulcal prominence, likely age-related parenchymal volume loss. Periventricular and subcortical white matter T2/FLAIR hyperintensity, nonspecific but likely indicative of chronic small vessel ischemic change. No mass effect or midline shift. No restricted diffusion to suggest acute ischemia. No hemorrhage. No extra-axial fluid collection. T2 skull base flow voids preserved. No abnormal parenchymal enhancement. Bone marrow signal intensity within the calvarium within normal limits. Mucosal thickening in posterior left ethmoid air cells and sphenoid sinuses. IMPRESSION: 1. Chronic small vessel ischemic change. No acute intracranial abnormality. No abnormal parenchymal enhancement. Consultations: Neurologist Dr. Villasenor Pending Studies/Follow-Up: Please refer to hospital course below. Medication Reconciliation New Medications: Cefuroxime Axetil (Cefuroxime Axetil) 250 Mg Tab 1 TAB PO BID for 3 Days Carbidopa-Levodopa (Sinemet) 1 Tab Tab 1 TAB PO BIDM for 4 Days, TAB Carbidopa-Levodopa (Sinemet) 1 Tab Tab 1 TAB PO TIDM for 30 Days, TAB Miconazole Nitrate (Desenex Shake Powder) 43 Appln/43 Gm Powd 1 APPLN EXT PRN PRN for Affected Skin Folds for 30 Days Continued Medications: Carteolol Hcl (Ophth) (Carteolol Hcl) 1 % Sowmya 1 DROP OPB QAM Admission Information HPI (per Admitting provider): Patient is an 87yo M with PMH of bladder calculus who presents after being found at home after a fall. Patient is a poor historian 2/2 altered mental status and possible underlying dementia. Obtained a majority of the history from his friend Silvina, who serves as POA. Patient lives alone and is visited by a home health agency frequently. Ambulates by walker and prepares his own food. Yesterday, patient was found on the floor by home health covered in feces. An ambulance was called but patient refused to come to hospital. HESHAM had landlord check in on patient again today and he was found to be lying on the floor covered in urine and feces. Was then brought to the ED for further evaluation. [facility] is aware of patient's case and have been involved in the past. POA notes confusion and generalized weakness compared to baseline. Patient is unclear of any events proceeding falls. Does not feel confused. Unable to obtain full ROS 2/2 altered mental status. Does not take any home medications besides eye drops for glaucoma. In ED, patient found to have an elevated wbc count of 16 and + UA. Also has elevated CK of 2161. Head CT, CXR, CT cervical spine without acute changes. Physical Exam (per Admitting): General Appearance: no apparent distress, + cachetic, + pertinent finding ( Poorly groomed) Head: normocephalic, atraumatic Eyes: normal inspection, PERRL, sclerae normal ENT: normal ENT inspection, pharynx normal (dry mucous membranes ), + pertinent finding (poor dentition ) Neck: supple, thyroid normal, trachea midline Respiratory/Chest: chest non-tender, lungs clear, normal breath sounds, no respiratory distress, no accessory muscle use Cardiovascular: regular rate, rhythm, no murmur, normal peripheral pulses Abdomen/GI: non tender, soft, no organomegaly Back: normal inspection Extremities/Musculoskelatal: no calf tenderness, normal capillary refill, no pedal edema, normal range of motion, non-tender, + pertinent finding (Large skin tear on L shoulder, no drainage. Bruising on L hip, non-tender ) Neurologic/Psych: no motor/sensory deficits, alert (oriented to person ), + disoriented Skin: warm/dry, no rash Hospital Course SEPSIS LIKELY FROM UTI, ENTEROCOCCUS CLOACAE Met criteria for sepsis per Sepsis-1 definition and current CMS guidelines. Was tachycardic at time of presentation with a white count of 16,000. Serum lactate 1.9. Procalcitonin = 14.92. --> 0.65. UTI (present on admission), ENTEROCOCCUS CLOACAE Urinalysis demonstrated nitrates, leukocyte esterase, WBCs, bacteria. Urine culture growing Enterobacter cloacae and gamma Strep, not Enterococcus. -- improving -- given Ceftriaxone 7 days continue 3 more days of Cefuroxime 250mg po BID ALTERED MENTAL STATUS, Resolved Probable metabolic encephalopathy from dehydration and / or encephalopathy secondary to infection. DEHYDRATION BUN and creatinine at time of admission 40 and 1.19, respectively. -- has received IV fluids crea improved to 0.7 RHABDOMYOLYSIS Secondary to fall and/or immobilization. Total CPK 2161 --> 1160 --> 603 --> 271. resolved after IV fluids MODERATE OROPHARYNGEAL DYSPHAGIA Witnessed episode of coughing while eating. No infiltrates on chest x-ray. Evaluated by [facility]. Videofluoroscopy demonstrated multiple episodes of silent aspiration. -- repeat Video Swallow: improving -- recommendations by Speech Therapy: This patient presents with moderate oropharyngeal dysphagia and mild esophageal dysfunction. Swallow function did improve however the patient is at a HIGH risk for aspiration. Recommendations are as follows: 1. Mechanical soft diet, thin liquids. NO mixed consistencies (such as cold cereal in milk, soups with noodles and thin broth etc). 2. Aspiration precautions, NO straws, fully upright for meals and for 30 minutes after meals. 3. Stringent oral care to include brushing all surfaces of the mouth and tongue prior to and after meals, and before bed. 4. Double effortful swallow with each bite/sip of food. 5. Follow up [facility] services at SNF on discharge. Ensure pt getting appropriate diet and implementing all aspiration precautions/compensatory strategies MALNUTRITION Weight 51.2 kg, BMI 17.2. Serum albumin 2.7. Severe protein calorie malnutrition. Malnutrition may be secondary to combination of factors, including dysphagia with aspiration and social factors. FALLS, POSSIBLE PARKINSON Recurrent falls. Mechanism(s) uncertain. Has resting tremor Possible Parkinson's. Neuro consulted: Sinemet BID x 5 days, then TID monitor for confusion, fall precautions ff up with Neuro in 2-3 weeks continue PT / OT GLAUCOMA Continue usual ophthalmic medications. VTE PROPHYLAXIS given SQ heparin. Ambulate. DISPOSITION transition to [facility] follow up with Primary Care Physician c/o [facility] Total time spent on discharge = 40 minutes This includes examination of the patient, discharge planning, medication reconciliation, and communication with other providers. Discharge Instructions Discharge Instructions Date of Service February 10, 2018. Admission Reason for Admission: Altered Mental Status, Dehydration, Syncope Discharge Discharge Diagnosis / Problem: ALTERED MENTAL STATUS, URINARY TRACT INFECTION Discharge Goals Goal(s): Diagnostic testing, Therapeutic intervention Activity Recommendations Activity Level: Assistance Required Therapies: Physical Therapy, Occupational Therapy, Speech Therapy . Additional Information Patient informed of condition: Yes Advance Directives: No (unknown) DNR: Yes Level of Care: Skilled Communicable Disease: No Prognosis: Improving Instructions / Follow-Up Instructions / Follow-Up FOLLOW SPEECH THERAPY RECOMMENDATIONS: This patient presents with moderate oropharyngeal dysphagia and mild esophageal dysfunction. Swallow function did improve however the patient is at a HIGH risk for aspiration. Recommendations are as follows: 1. Mechanical soft diet, thin liquids. NO mixed consistencies (such as cold cereal in milk, soups with noodles and thin broth etc). 2. Aspiration precautions, NO straws, fully upright for meals and for 30 minutes after meals. 3. Stringent oral care to include brushing all surfaces of the mouth and tongue prior to and after meals, and before bed. 4. Double effortful swallow with each bite/sip of food. 5. Follow up [facility] services at SNF on discharge. Ensure pt getting appropriate diet and implementing all aspiration precautions/compensatory strategies FALL PRECAUTIONS. MONITOR FOR CONFUSION. PLEASE REFER TO ACCOMPANYING DISCHARGE SUMMARY FOR FURTHER DETAILS. Current Hospital Diet Patient's current hospital diet: Regular Diet Discharge Diet Recommended Diet: Regular Diet Diet Texture: Mechanical Soft (ground) Procedures Procedures Performed: VIDEOFLUOROSCOPIC SWALLOW EXAM, CHEST CT, ABDOMINAL CT Pending Studies Studies pending at discharge: no Physician Orders On Transfer Special Precautions: FOLLOW SPEECH THERAPY RECOMMENDATIONS: This patient presents with moderate oropharyngeal dysphagia and mild esophageal dysfunction. Swallow function did improve however the patient is at a HIGH risk for aspiration. Recommendations are as follows: 1. Mechanical soft diet, thin liquids. NO mixed consistencies (such as cold cereal in milk, soups with noodles and thin broth etc). 2. Aspiration precautions, NO straws, fully upright for meals and for 30 minutes after meals. 3. Stringent oral care to include brushing all surfaces of the mouth and tongue prior to and after meals, and before bed. 4. Double effortful swallow with each bite/sip of food. 5. Follow up [facility] services at SNF on discharge. Ensure pt getting appropriate diet and implementing all aspiration precautions/compensatory strategies FALL PRECAUTIONS. MONITOR FOR CONFUSION. PLEASE REFER TO ACCOMPANYING DISCHARGE SUMMARY FOR FURTHER DETAILS. Medical Emergencies . Who to Call and When: Medical Emergencies: If at any time you feel your situation is an emergency, please call 911 immediately. . Non-Emergent Contact Non-Emergency issues call your: Primary Care Provider Call Non-Emergent contact if: you have a fever . Past History Medical & Surgical History: (1) Glaucoma (2) Lumbar transverse process fracture (3) Rhabdomyolysis (4) UTI (urinary tract infection) (5) Altered mental status (6) H/O hernia repair . "Provider Documentation" section prepared by Demian Warner. . Core Measure Problem Core Measures: None
[2018-02-10 16:35] VITALS: BP 146/75; PULSE 76; TEMP 36.8; O2SAT 99
[2018-02-14] MEDS ORDERED: CARBIDOPA/LEVODOPA 25/100MG TAB PO SCH (12:00)
== END 2018-02-10 17:26 | DRG 871 ==
LOC: EDBD 12:11 → C.EDA 12:13 → ENRESERV 15:36 → C.MS4W 16:15
PROVIDERS: ADMIT Hospitalist; ATTEND Internal Medicine
DX: A41.81 Sepsis due to Enterococcus (principal); G93.41 Metabolic encephalopathy; N39.0 Urinary tract infection, site not specified; M62.82 Rhabdomyolysis; E46 Unspecified protein-calorie malnutrition; Z68.1 Body mass index [BMI] 19.9 or less, adult; E86.0 Dehydration; W19.XXXA Unspecified fall, initial encounter; H40.9 Unspecified glaucoma; F03.90 Unspecified dementia, unspecified severity, without behavioral disturbance, psychotic disturbance, mood disturbance, and anxiety; Y92.009 Unspecified place in unspecified non-institutional (private) residence as the place of occurrence of the external cause; R13.12 Dysphagia, oropharyngeal phase

== ENCOUNTER → 2018-02-11 | Outpatient (CLI) | payer OTHER ==
[~2018-02-11] MED LIST changes: +CARB25TA2 PO; +CEFU1TAB33 PO; +MCTP EXT
[2018-02-11 09:03] LABS: BASO % 0.1 %; BASO ABS # 0.01 K/uL (0-0.2); EOS % 0.6 %; EOS ABS # 0.08 K/uL (0-0.5); HEMATOCRIT 41.8 % (42-52); HEMOGLOBIN 14.4 g/dL (14.0-18.0); IG# 0.06 K/uL (0.00-0.02); LYMPH % 7.4 %; LYMPH ABS # 0.99 K/uL (1.2-3.4); MEAN CELL VOLUME 93.1 fL (80-100); MEAN CORPUSCULAR HEMOGLOBIN 32.1 pg (25-34); MEAN CORPUSCULAR HGB CONC 34.4 g/dl (32-36); MEAN PLATELET VOLUME 9.9 fL (7.4-10.4); MONO ABS # 1.07 K/uL (0.11-0.59); NEUT % 83.5 %; NEUT ABS # 11.21 K/uL (1.4-6.5); PLATELET COUNT 202 K/uL (130-400); RED CELL DISTRIBUTION WIDTH CV 13.3 % (11.5-14.5); RED CELL DISTRIBUTION WIDTH SD 45.2 fL (36.4-46.3); WHITE BLOOD COUNT 13.42 K/uL (4.8-10.8)
[2018-02-11 09:25] LABS: ALBUMIN 2.6 gm/dl (3.4-5.0); ALKALINE PHOSPHATASE 63 U/L (45-117); ALT/SGPT 56 U/L (12-78); AST/SGOT 29 U/L (15-37); BLOOD UREA NITROGEN 17 mg/dl (7-18); CALCIUM 8.3 mg/dl (8.5-10.1); CARBON DIOXIDE 26 mmol/L (21-32); CREATININE 0.76 mg/dl (0.60-1.40); GLUCOSE 91 mg/dl (70-99); POTASSIUM 3.9 mmol/L (3.5-5.1); SODIUM 137 mmol/L (136-145)
== END ==
LOC: C.LABUPNIT 08:16
PROVIDERS: ATTEND Nurse Practitioner Family
DX: E46 Unspecified protein-calorie malnutrition (principal); N39.0 Urinary tract infection, site not specified

== ENCOUNTER → 2018-02-15 | Outpatient (CLI) | payer OTHER ==
[2018-02-15 10:09] LABS: BASO % 0.2 %; BASO ABS # 0.02 K/uL (0-0.2); EOS % 1.6 %; EOS ABS # 0.13 K/uL (0-0.5); HEMATOCRIT 40.9 % (42-52); HEMOGLOBIN 13.6 g/dL (14.0-18.0); IG# 0.07 K/uL (0.00-0.02); LYMPH % 17.3 %; LYMPH ABS # 1.42 K/uL (1.2-3.4); MEAN CELL VOLUME 96.2 fL (80-100); MEAN CORPUSCULAR HGB CONC 33.3 g/dl (32-36); MEAN PLATELET VOLUME 9.5 fL (7.4-10.4); MONO % 11.1 %; MONO ABS # 0.91 K/uL (0.11-0.59); NEUT % 68.9 %; NEUT ABS # 5.67 K/uL (1.4-6.5); PLATELET COUNT 245 K/uL (130-400); RED CELL DISTRIBUTION WIDTH CV 13.5 % (11.5-14.5); RED CELL DISTRIBUTION WIDTH SD 47.2 fL (36.4-46.3); WHITE BLOOD COUNT 8.22 K/uL (4.8-10.8)
== END ==
LOC: C.LABUPNIT 09:16
PROVIDERS: ATTEND Nurse Practitioner Family
DX: N39.0 Urinary tract infection, site not specified (principal)

== ENCOUNTER 2018-05-02 13:04 | Emergency (ER) | payer OTHER ==
[~2018-05-02] VITALS: Ht 167.6 cm; Wt 50.4 kg
[2018-05-02 13:12] VITALS: TEMP 36.8; Ht 167.6 cm; Wt 50.4 kg
[2018-05-02 14:07] LABS: BASO % 0.2 %; BASO ABS # 0.01 K/uL (0-0.2); EOS % 0.6 %; EOS ABS # 0.04 K/uL (0-0.5); HEMATOCRIT 44.7 % (42-52); HEMOGLOBIN 15.2 g/dL (14.0-18.0); IG# 0.02 K/uL (0.00-0.02); LYMPH % 16.6 %; LYMPH ABS # 1.09 K/uL (1.2-3.4); MEAN CELL VOLUME 93.5 fL (80-100); MEAN CORPUSCULAR HEMOGLOBIN 31.8 pg (25-34); MEAN PLATELET VOLUME 9.9 fL (7.4-10.4); MONO % 11.4 %; MONO ABS # 0.75 K/uL (0.11-0.59); NEUT % 70.9 %; NEUT ABS # 4.65 K/uL (1.4-6.5); PLATELET COUNT 192 K/uL (130-400); RED CELL DISTRIBUTION WIDTH CV 13.9 % (11.5-14.5); RED CELL DISTRIBUTION WIDTH SD 47.3 fL (36.4-46.3); WHITE BLOOD COUNT 6.56 K/uL (4.8-10.8)
--- NOTE | 2018-05-02 14:47 | DIAGNOSTIC IMAGING REPORT ---
ABDOMEN 2VIEW W/PA CHEST RTN CLINICAL HISTORY: dysphagia dysphagia COMPARISON STUDY: 02/04/2018 FINDINGS: The soft tissues, psoas shadows, renal outlines and intestinal gas pattern appear normal. There is no evidence for bowel obstruction. There is no evidence for free intraperitoneal air. No abnormal abdominal calcifications are seen. A frontal view of the chest was performed and is unremarkable. IMPRESSION: Normal study. The above report was generated using voice recognition software. It may contain grammatical, syntax or spelling errors. Electronically signed by: Merrick Quijano M.D. 05/02/2018 2:46 PM Dictated Date/Time: 05/02/2018 2:45 PM
[2018-05-02 14:48] LABS: ALBUMIN 3.4 gm/dl (3.4-5.0); ALKALINE PHOSPHATASE 85 U/L (45-117); ALT/SGPT 8 U/L (12-78); AST/SGOT 12 U/L (15-37); BLOOD UREA NITROGEN 12 mg/dl (7-18); CALCIUM 9.1 mg/dl (8.5-10.1); CARBON DIOXIDE 28 mmol/L (21-32); GLUCOSE 112 mg/dl (70-99); POTASSIUM 4.7 mmol/L (3.5-5.1); SODIUM 137 mmol/L (136-145)
[2018-05-02] MEDS ORDERED: CEPHALEXIN MONOHYDRATE 250 MG CAP PO ONE (15:30)
--- NOTE | 2018-05-02 18:02 | EMERGENCY ROOM VISIT NOTE ---
History Report prepared by Rodney: Jaz Garcia Under the Supervision of: Dr. Kristina Clark D.O. First contact with patient: 13:21 Chief Complaint: MENTAL HEALTH EVALUATION Stated Complaint: MHID History of Present Illness The patient is an 87 year old male who presents to the Emergency Room for a mental health evaluation. Per the psych spring encaser, the patient is here on a 302 due to him making suicidal statements to his prison nurses. They report that the patient asked the nurse for books on how to commit suicide and she asked if he was suicidal and had a plan. They state that the patient said that he needed the books to pick a plan. They report that they told him all items would have to be removed from his room then and he reportedly told the nurse that it would make him want to do it faster then. They state that the patient hates being at [facility] because he doesn't like being taken care of. The psych spring encaser's report that he feels helpless and hopeless. They note that he made the comment of wishing for a terminal illness that would take him out faster. They note that they believe this was exacerbated by his POA picking him up over the weekend and taking him to where he used to live. The patient states that he has never felt this sad and depressed before. He reports that he has never had thoughts of hurting himself before or ever trying to hurt himself before. He states that he has been thinking about hurting himself for the past few months now. He notes that he has not been drinking enough water recently. The patient denies cough, loss of appetite, recent illness, and being in any pain. Source of History: patient Onset: a few months Quality: other (mental health) Timing: worsening Modifying Factors (Worsening): other (being at the prison) Associated Symptoms: No cough Note: The patient complains of worsening depression and suicidal ideations. The patient denies loss of appetite, recent illness, and being in any pain. Review of Systems See HPI for pertinent positives & negatives. A total of 10 systems reviewed and were otherwise negative. Past Medical & Surgical Medical Problems: (1) Glaucoma (2) Hyperthyroidism (3) Lumbar transverse process fracture (4) Parkinson disease Surgical Problems: (1) H/O hernia repair Family History Patient reports no known family medical history. Social History Smoking Status: Former Smoker Alcohol Use: none Marital Status: single Housing Status: lives alone Occupation Status: retired Current/Historical Medications Scheduled Carbidopa/Levodopa (Sinemet 25MG/100MG), 1 TAB PO TIDM Carteolol Hcl (Ophth) (Carteolol Hcl), 1 DROP OPB QPM Levothyroxine Sodium (Synthroid), 25 MCG PO QAM Tamsulosin Hcl (Flomax), 0.4 MG PO QAM Trazodone Hcl (Trazodone), 25 MG PO HS Scheduled PRN Acetaminophen (Tylenol), 650 MG PO Q8 PRN for Pain or Fever Bisacodyl (Dulcolax), 1 SUPP WV DAILY PRN for NO BM IN 4 DAYS. Magnesium Hydroxide (Milk of Magnesia 400 mg/5Ml), 30 ML PO DAILY PRN for NO BM IN 3 DAYS. Sodium Phosphate/Biphosphate (Fleet Enema), 1 EA WV DAILY PRN for IF NO RESULTS FROM SUPP. Allergies Coded Allergies: No Known Allergies (Verified , 05/02/18) Physical Exam Vital Signs Date Time Temp Pulse Resp B/P (MAP) Pulse Ox O2 Delivery O2 Flow Rate FiO2 05/03/18 04:42 78 16 126/67 97 05/03/18 00:30 72 16 104/77 96 Room Air 05/02/18 16:30 77 18 119/63 99 Room Air 05/02/18 14:37 77 18 120/63 99 Room Air 05/02/18 13:12 36.8 79 18 137/77 98 Room Air Physical Exam GENERAL: alert, well appearing, well nourished, no distress, non-toxic, hard of hearing EYE EXAM: normal conjunctiva, PERRL and EOM's grossly intact OROPHARYNX: no exudate, no erythema, lips, buccal mucosa, and tongue normal and mucous membranes are moist NECK: supple, no nuchal rigidity, no adenopathy, non-tender LUNGS: Decreased breath sounds, but clear to auscultation. Normal chest wall mechanics HEART: no murmurs, S1 normal and S2 normal ABDOMEN: abdomen soft, non-tender, normo-active bowel sounds, no masses, no rebound or guarding. BACK: Back is symmetrical on inspection and there is no deformity, no midline tenderness, no CVA tenderness. SKIN: no rashes and no bruising UPPER EXTREMITIES: upper extremities are grossly normal. LOWER EXTREMITIES: No pitting edema. NEURO EXAM: Normal sensorium, cranial nerves II-XII grossly intact, normal speech, no gross weakness of arms, no gross weakness of legs. Psych: Positive depression. Positive SI. No definite plan. Medical Decision & Procedures ER Provider Diagnostic Interpretation: Radiology results have been interpreted by the radiologist and reviewed by me. ABDOMEN 2VIEW W/PA CHEST RTN CLINICAL HISTORY: dysphagia dysphagia COMPARISON STUDY: 02/04/2018 FINDINGS: The soft tissues, psoas shadows, renal outlines and intestinal gas pattern appear normal. There is no evidence for bowel obstruction. There is no evidence for free intraperitoneal air. No abnormal abdominal calcifications are seen. A frontal view of the chest was performed and is unremarkable. IMPRESSION: Normal study. The above report was generated using voice recognition software. It may contain grammatical, syntax or spelling errors. Electronically signed by: Merrick Quijano M.D. 05/02/2018 2:46 PM Dictated Date/Time: 05/02/2018 2:45 PM HEAD WITHOUT CONTRAST (CT) CLINICAL HISTORY: 87 years-old Male presenting with si, parkinsons, psych request. TECHNIQUE: Multidetector CT imaging of the head was performed without the use of intravenous contrast. IV contrast: None. A dose lowering technique was used consistent with the principles of ALARA (as low as reasonably achievable). COMPARISON: 02/03/2018 and brain MR from 02/08/2018 and numerous additional prior exams. CT DOSE (mGy.cm): The estimated cumulative dose is 537.48 mGy.cm. FINDINGS: Draw Off Worker topogram: Unremarkable. Proportional ventricular and sulcal prominence with the exception of the vertex, where there is disproportionate gyral crowding and sulcal effacement similar to prior exams. There is a decreased callosal angle measuring 59 degrees. Brain parenchyma otherwise normal in appearance with preserved tineo-white differentiation. No midline shift. No hemorrhage or acute territorial infarct. No extra-axial fluid collection. Mucosal thickening in ethmoid air cells and the sphenoid sinuses similar to prior. Calvarium intact. Intracranial atherosclerosis noted. IMPRESSION: 1. No acute intracranial abnormality. 2. Findings could suggest normal pressure hydrocephalus versus advanced age-related parenchymal volume loss though the appearance is unchanged since June 18, 2016. Electronically signed by: Sascha Lauren M.D. 05/02/2018 7:25 PM Dictated Date/Time: 05/02/2018 7:18 PM Laboratory Results 05/02/18 13:53 Red Blood Count 4.78, Mean Corpuscular Volume 93.5, Mean Corpuscular Hemoglobin 31.8, Mean Corpuscular Hemoglobin Concent 34.0, Mean Platelet Volume 9.9, Neutrophils (%) (Auto) 70.9, Lymphocytes (%) (Auto) 16.6, Monocytes (%) (Auto) 11.4, Eosinophils (%) (Auto) 0.6, Basophils (%) (Auto) 0.2, Neutrophils # (Auto ) 4.65, Lymphocytes # (Auto) 1.09, Monocytes # (Auto) 0.75, Eosinophils # (Auto ) 0.04, Basophils # (Auto) 0.01 05/02/18 13:53 Test 05/02/18 13:50 05/02/18 13:53 Urine Color YELLOW Urine Appearance CLEAR (CLEAR) Urine pH 5.5 (4.5-7.5) Urine Specific [place] 1.015 (1.000-1.030) Urine Protein NEG (NEG) Urine Glucose (UA) NEG (NEG) Urine Ketones NEG (NEG) Urine Occult Blood NEG (NEG) Urine Nitrite POS (NEG) Urine Bilirubin NEG (NEG) Urine Urobilinogen NEG (NEG) Urine Leukocyte Esterase LARGE (NEG) Urine WBC (Auto) >30 /hpf (0-5) Urine RBC (Auto) 0-4 /hpf (0-4) Urine Hyaline Casts (Auto) 1-5 /lpf (0-5) Urine Epithelial Cells (Auto) 0-5 /lpf (0-5) Urine Bacteria (Auto) 2+ (NEG) Urine Opiates Screen NEG (NEG) Urine Methadone, Qualitative NEG (NEG) Urine Barbiturates NEG (NEG) Urine Phencyclidine (PCP) Level NEG (NEG) Ur Amphetamine/Methamphetamine NEG (NEG) MDMA (Ecstasy) Screen NEG (NEG) Urine Benzodiazepines Screen NEG (NEG) Urine Cocaine Metabolite NEG (NEG) Urine Marijuana (THC) NEG (NEG) White Blood Count 6.56 K/uL (4.8-10.8) Red Blood Count 4.78 M/uL (4.7-6.1) Hemoglobin 15.2 g/dL (14.0-18.0) Hematocrit 44.7 % (42-52) Mean Corpuscular Volume 93.5 fL (80-100) Mean Corpuscular Hemoglobin 31.8 pg (25-34) Mean Corpuscular Hemoglobin Concent 34.0 g/dl (32-36) Platelet Count 192 K/uL (130-400) Mean Platelet Volume 9.9 fL (7.4-10.4) Neutrophils (%) (Auto) 70.9 % Lymphocytes (%) (Auto) 16.6 % Monocytes (%) (Auto) 11.4 % Eosinophils (%) (Auto) 0.6 % Basophils (%) (Auto) 0.2 % Neutrophils # (Auto) 4.65 K/uL (1.4-6.5) Lymphocytes # (Auto) 1.09 K/uL (1.2-3.4) Monocytes # (Auto) 0.75 K/uL (0.11-0.59) Eosinophils # (Auto) 0.04 K/uL (0-0.5) Basophils # (Auto) 0.01 K/uL (0-0.2) RDW Standard Deviation 47.3 fL (36.4-46.3) RDW Coefficient of Variation 13.9 % (11.5-14.5) Immature Granulocyte % (Auto) 0.3 % Immature Granulocyte # (Auto) 0.02 K/uL (0.00-0.02) Anion Gap 6.0 mmol/L (3-11) Est Creatinine Clear Calc Drug Dose 45.5 ml/min Estimated GFR () 92.4 Estimated GFR (Non- 79.8 BUN/Creatinine Ratio 15.5 (10-20) Calcium Level 9.1 mg/dl (8.5-10.1) Magnesium Level 2.2 mg/dl (1.8-2.4) Total Bilirubin 0.5 mg/dl (0.2-1) Aspartate Amino Transf (AST/SGOT) 12 U/L (15-37) Alanine Aminotransferase (ALT/SGPT) 8 U/L (12-78) Alkaline Phosphatase 85 U/L (45-117) Troponin I < 0.015 ng/ml (0-0.045) Total Protein 7.0 gm/dl (6.4-8.2) Albumin 3.4 gm/dl (3.4-5.0) Globulin 3.6 gm/dl (2.5-4.0) Albumin/Globulin Ratio 0.9 (0.9-2) Thyroid Stimulating Hormone (TSH) 2.170 uIu/ml (0.300-4.500) Ethyl Alcohol mg/dL < 3.0 mg/dl (0-3) Date/Time Source Procedure Growth Status 05/02/18 18:38 Nasal MRSA DNA Surveillance Screen - Final Specimen Negative for MRSA by DNA Probe Complete Laboratory results per my review. Medications Administered Medications (Trade) Dose Ordered Sig/Juan Francisco Route Start Time Stop Time Status Last Admin Dose Admin Cephalexin Monohydrate (Keflex Cap) 500 mg NOW ONCE PO 05/02/18 15:30 05/02/18 15:31 DC 05/02/18 16:17 500 MG Cephalexin Monohydrate (Keflex Cap) 500 mg NOW ONCE PO 05/03/18 01:45 05/03/18 01:46 DC 05/03/18 01:52 500 MG ECG Per My Interpretation Indication: other Rate (beats per minute): 78 Rhythm: sinus rhythm Findings: other (normal axis, normal intervals) ED Course 1335: The patient was evaluated in room A7. A complete history and physical exam was performed. 1530: Ordered Keflex Cap 500 mg PO. 1730: I signed the patient's 302 at this time. The delegate is here to do a bed search at this time. 0: Pt stable. No acute changes. Awaiting placement. Signed out to Dr. Edge. Medical Decision Differential diagnoses considered include mood disorder, infection, hypoglycemia , electrolyte abnormalities, cardiac sources, intracerebral event, toxicologic, neurologic, as well as others. Patient here with depression and plan to research a method to commit suicide. Patient with no other physical complaints. Is oriented and appropriate otherwise. I do not suspect encephalopathy related to the urinary tract infection. Patient was started on Keflex. No other evidence of bacteremia/ sepsis. Patient with no other symptoms to suggest obstructive uropathy. Patient hemodynamically stable throughout. Questionable hydrocephalus noted on CT, I feel this is unlikely to be contributing to the patient's current presentation, and is more likely artifactual given his advanced age. Patient with no neurologic symptoms. Patient made aware of all results. 302 upheld. Medication Reconcilliation Current Medication List: was personally reviewed by me Blood Pressure Screening Patient's blood pressure: Normal blood pressure Blood pressure disposition: Did not require urgent referral Impression Primary Impression: Depression Additional Impressions: Suicidal ideation Parkinson disease UTI (urinary tract infection) Scribe Attestation The scribe's documentation has been prepared under my direction and personally reviewed by me in its entirety. I confirm that the note above accurately reflects all work, treatment, procedures, and medical decision making performed by me. Departure Information Dispostion Still a Patient Referrals Jing Joseph (PCP) Patient Instructions My [facility] Problem Qualifiers Primary Impression: Depression Depression Type: unspecified Qualified Codes: F32.9 - Major depressive disorder, single episode, unspecified Additional Impressions: UTI (urinary tract infection) Urinary tract infection type: acute cystitis Hematuria presence: without hematuria Qualified Codes: N30.00 - Acute cystitis without hematuria
[2018-05-02] MEDS ORDERED: SODIENE PR (19:05)
[2018-05-02] MEDS ORDERED: LEVO25TA PO (19:05)
[2018-05-02] MEDS ORDERED: MAGNSUS73 PO (19:05)
[2018-05-02] MEDS ORDERED: TAMS0.4C38 PO (19:05)
[2018-05-02] MEDS ORDERED: CARB25TA12 PO (19:05)
[2018-05-02] MEDS ORDERED: ACET-1311 PO (19:05)
[2018-05-02] MEDS ORDERED: BISA10SU3 PR (19:05)
[2018-05-02] MEDS ORDERED: TRAZ50TA35 PO (19:05)
--- NOTE | 2018-05-02 19:26 | DIAGNOSTIC IMAGING REPORT ---
HEAD WITHOUT CONTRAST (CT) CLINICAL HISTORY: 87 years-old Male presenting with si, parkinsons, psych request. TECHNIQUE: Multidetector CT imaging of the head was performed without the use of intravenous contrast. IV contrast: None. A dose lowering technique was used consistent with the principles of ALARA (as low as reasonably achievable). COMPARISON: 02/03/2018 and brain MR from 02/08/2018 and numerous additional prior exams. CT DOSE (mGy.cm): The estimated cumulative dose is 537.48 mGy.cm. FINDINGS: Global Coordinator topogram: Unremarkable. Proportional ventricular and sulcal prominence with the exception of the vertex, where there is disproportionate gyral crowding and sulcal effacement similar to prior exams. There is a decreased callosal angle measuring 59 degrees. Brain parenchyma otherwise normal in appearance with preserved tineo-white differentiation. No midline shift. No hemorrhage or acute territorial infarct. No extra-axial fluid collection. Mucosal thickening in ethmoid air cells and the sphenoid sinuses similar to prior. Calvarium intact. Intracranial atherosclerosis noted. IMPRESSION: 1. No acute intracranial abnormality. 2. Findings could suggest normal pressure hydrocephalus versus advanced age-related parenchymal volume loss though the appearance is unchanged since June 18, 2016. Electronically signed by: Sascha Lauren M.D. 05/02/2018 7:25 PM Dictated Date/Time: 05/02/2018 7:18 PM
--- NOTE | 2018-05-03 01:32 | EMERGENCY ROOM VISIT NOTE ---
ED Visit Note First contact with patient: 20:59 Patient was signed out to me by Dr. cortez awaiting placement of a 302 for suicidal thoughts. Patient also has a UTI. Patient was resting comfortably on repeat evaluations. Patient was given additional dose of Keflex for his UTI. Was placed at [facility]. Currently awaiting transport.
[2018-05-03] MEDS ORDERED: CEPHALEXIN MONOHYDRATE 250 MG CAP PO ONE (01:45)
[2018-05-03 04:42] VITALS: BP 126/67; PULSE 78; O2SAT 97
== END 2018-05-03 04:42 ==
LOC: EDBD 13:04 → C.EDA 13:05
DX: F32.9 Major depressive disorder, single episode, unspecified (principal); R45.851 Suicidal ideations; N30.00 Acute cystitis without hematuria; G20 Parkinson's disease; H40.9 Unspecified glaucoma; E03.9 Hypothyroidism, unspecified; Z87.891 Personal history of nicotine dependence

== ENCOUNTER 2018-05-18 15:25 | Emergency (ER) | payer OTHER ==
[~2018-05-18] VITALS: Ht 174 cm; Wt 50.1 kg
[2018-05-18 15:40] VITALS: Ht 174 cm; Wt 50.1 kg
--- NOTE | 2018-05-18 16:15 | EMERGENCY ROOM VISIT NOTE ---
History Report prepared by Rodney: Monty Beckett Under the Supervision of: Dr. Luca Duran M.D. First contact with patient: 15:52 Chief Complaint: MENTAL HEALTH EVALUATION Stated Complaint: MENTAL HEALTH History of Present Illness The patient is a 87 year old male who presents to the Emergency Room with complaints of suicidal thoughts and ideations. The patient is brought in on an involuntary 302. The patient was recently at [facility] seeing a psychiatrist for this. He then went to [facility] and was advising the staff he again wanted to kill himself, so he was brought in on an involuntary 302. The patient advised staff he was going to hang himself with hangers and also asked staff members to push him off a jackie. The patient expressed if he gets an opportunity, he will kill himself. The patient refuses inpatient or outpatient treatment for this. He talked with a claims director at the alf, and they sent him here. The patient states he has been feeling like this for "about a month or two" and doesn't relate it to any specific incident. He states he had symptoms like this years ago, but states it "wasn't enough to notice." The patient states he has started to have nausea the past few days as well as urinary incontinence at night. Pt denies LOC, headache, fevers, chills, diaphoresis, visual changes, neck pain , chest pain, breathing difficulties, vomiting, abdominal pain, back pain, melena, hematochezia, numbness, weakness, lymphadenopathy, rash, or other complaints. Source of History: patient Onset: 1-2 months Symptom Intensity: moderate Review of Systems See HPI for pertinent positives and negatives. A total of ten systems were reviewed and were otherwise negative. Constitutional: No fever, No chills Respiratory: No cough, No shortness of breath Cardiovascular: No chest pain Abdomen: + nausea, No pain, No vomiting, No diarrhea Genitourinary - Male: + urinary incontinence Psychiatric: + problem reported (Suicidal thoughts) Integumentary: No rash Past Medical & Surgical Medical Problems: (1) Glaucoma (2) Hyperthyroidism (3) Lumbar transverse process fracture (4) Parkinson disease Surgical Problems: (1) H/O hernia repair (2) History of prostate surgery Family History Patient reports no known family medical history. Social History Smoking Status: Never Smoker Alcohol Use: none Marital Status: single Housing Status: lives alone Occupation Status: retired Current/Historical Medications Scheduled Carbidopa/Levodopa (Sinemet 25MG/100MG), 1 TAB PO TIDM Carteolol Hcl (Ophth) (Carteolol Hcl), 1 DROP OPB QPM Cholecalciferol (Vitamin D), 1 TAB PO DAILY Escitalopram (Lexapro), 10 MG PO DAILY Levofloxacin (Levaquin), 750 MG PO Q2D Levothyroxine Sodium (Synthroid), 25 MCG PO QAM Tamsulosin Hcl (Flomax), 0.4 MG PO QAM Trazodone Hcl (Trazodone), 25 MG PO HS Scheduled PRN Acetaminophen (Tylenol), 650 MG PO Q8 PRN for Pain or Fever Bisacodyl (Dulcolax), 1 SUPP DC DAILY PRN for NO BM IN 4 DAYS. Magnesium Hydroxide (Milk of Magnesia 400 mg/5Ml), 30 ML PO DAILY PRN for NO BM IN 3 DAYS. Sodium Phosphate/Biphosphate (Fleet Enema), 1 EA DC DAILY PRN for IF NO RESULTS FROM SUPP. Allergies Coded Allergies: No Known Allergies (Verified , 05/02/18) Physical Exam Vital Signs Date Time Temp Pulse Resp B/P (MAP) Pulse Ox O2 Delivery O2 Flow Rate FiO2 05/18/18 17:57 84 17 148/86 97 Room Air 05/18/18 15:40 84 17 151/77 98 Room Air Physical Exam GENERAL: Age appropriate appearing. Awake, alert, well appearing, no distress HENT: Normocephalic, atraumatic. TM's normal. Oropharynx unremarkable. EYES: PERRL. EOMI. Normal conjunctiva. Sclera non-icteric. NECK: Supple. No nuchal rigidity. FROM. No JVD or bruit. RESPIRATORY: Clear. Breath sounds equal. No wheezes. No rhonchi. Normal respiratory effort. CARDIAC: Normal rate. Regular rhythm. No murmurs. No rubs. No JVD. ABDOMEN: Soft, non distended. No tenderness to palpation. No rebound or guarding. No masses. MUSCULOSKELETAL: Unremarkable. No edema. No discoloration. Gross motor strength symmetric. NEURO: Cranial nerves 2-12 grossly intact. Normal sensorium. No sensory or motor deficits noted. Speech normal. No pronator drift. SKIN: No rash or jaundice noted. LYMPH: No adenopathy. PSYCH: depressed mood. flat affect. yes to suicidal ideation with plans to hang himself. no to homicidal ideation. Medical Decision & Procedures ER Provider Diagnostic Interpretation: Radiology results as stated below per my review and radiologist interpretation: CHEST ONE VIEW PORTABLE CLINICAL HISTORY: 87 years-old Male presenting with suicidal. TECHNIQUE: Portable upright AP view of the chest was obtained. COMPARISON: 05/02/2018. FINDINGS: Cardiomediastinal silhouette normal. Multiple skin folds noted over the left hemithorax. No focal opacity. No large effusion or pneumothorax. Osseous structures normal. Upper abdomen normal. IMPRESSION: 1. No acute cardiopulmonary disease. HEAD WITHOUT CONTRAST (CT) CLINICAL HISTORY: 87 years-old Male presenting with EVALUATE FOR PSYCH CLEARANCE. TECHNIQUE: Multidetector CT imaging of the head was performed without the use of intravenous contrast. IV contrast: None. A dose lowering technique was used consistent with the principles of ALARA (as low as reasonably achievable). COMPARISON: 05/02/2018. CT DOSE (mGy.cm): The estimated cumulative dose is 537.48 mGy.cm. FINDINGS: Workforce Specialist topogram: Unremarkable. Proportional ventricular and sulcal prominence, likely age-related parenchymal volume loss with the exception of the vertex where there is gyral crowding and sulcal effacement. The callosal angle now measures 51 degrees, previously 59 degrees. Periventricular and subcortical white matter hypoattenuation, nonspecific but likely indicative of chronic small vessel ischemic change. No mass effect or midline shift. No hemorrhage or acute territorial infarct. No extra-axial fluid collection. Paranasal sinuses and mastoid air cells clear. Calvarium intact. IMPRESSION: 1. No acute intracranial abnormality. 2. 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 Correlate clinically. The appearance is unchanged since 2016. Laboratory Results 05/18/18 16:55 Red Blood Count 4.46, Mean Corpuscular Volume 93.7, Mean Corpuscular Hemoglobin 31.4, Mean Corpuscular Hemoglobin Concent 33.5, Mean Platelet Volume 9.7, Neutrophils (%) (Auto) 66.4, Lymphocytes (%) (Auto) 18.0, Monocytes (%) (Auto) 14.2, Eosinophils (%) (Auto) 0.8, Basophils (%) (Auto) 0.3, Neutrophils # (Auto ) 4.17, Lymphocytes # (Auto) 1.13, Monocytes # (Auto) 0.89, Eosinophils # (Auto ) 0.05, Basophils # (Auto) 0.02 05/18/18 16:55 Test 05/18/18 16:55 05/18/18 18:30 White Blood Count 6.28 K/uL (4.8-10.8) Red Blood Count 4.46 M/uL (4.7-6.1) Hemoglobin 14.0 g/dL (14.0-18.0) Hematocrit 41.8 % (42-52) Mean Corpuscular Volume 93.7 fL (80-100) Mean Corpuscular Hemoglobin 31.4 pg (25-34) Mean Corpuscular Hemoglobin Concent 33.5 g/dl (32-36) Platelet Count 198 K/uL (130-400) Mean Platelet Volume 9.7 fL (7.4-10.4) Neutrophils (%) (Auto) 66.4 % Lymphocytes (%) (Auto) 18.0 % Monocytes (%) (Auto) 14.2 % Eosinophils (%) (Auto) 0.8 % Basophils (%) (Auto) 0.3 % Neutrophils # (Auto) 4.17 K/uL (1.4-6.5) Lymphocytes # (Auto) 1.13 K/uL (1.2-3.4) Monocytes # (Auto) 0.89 K/uL (0.11-0.59) Eosinophils # (Auto) 0.05 K/uL (0-0.5) Basophils # (Auto) 0.02 K/uL (0-0.2) RDW Standard Deviation 49.0 fL (36.4-46.3) RDW Coefficient of Variation 14.5 % (11.5-14.5) Immature Granulocyte % (Auto) 0.3 % Immature Granulocyte # (Auto) 0.02 K/uL (0.00-0.02) Anion Gap 10.0 mmol/L (3-11) Est Creatinine Clear Calc Drug Dose 51.0 ml/min Estimated GFR () 97.1 Estimated GFR (Non- 83.8 BUN/Creatinine Ratio 27.1 (10-20) Calcium Level 8.9 mg/dl (8.5-10.1) Total Bilirubin 0.5 mg/dl (0.2-1) Direct Bilirubin 0.2 mg/dl (0-0.2) Aspartate Amino Transf (AST/SGOT) 21 U/L (15-37) Alanine Aminotransferase (ALT/SGPT) 17 U/L (12-78) Alkaline Phosphatase 79 U/L (45-117) Troponin I < 0.015 ng/ml (0-0.045) Total Protein 6.5 gm/dl (6.4-8.2) Albumin 3.1 gm/dl (3.4-5.0) Thyroid Stimulating Hormone (TSH) 3.660 uIu/ml (0.300-4.500) Salicylates Level < 1.7 mg/dl (2.8-20) Acetaminophen Level < 2 ug/ml (10-30) Ethyl Alcohol mg/dL < 3.0 mg/dl (0-3) Urine Color YELLOW Urine Appearance CLEAR (CLEAR) Urine pH 8.0 (4.5-7.5) Urine Specific [place] 1.009 (1.000-1.030) Urine Protein NEG (NEG) Urine Glucose (UA) NEG (NEG) Urine Ketones NEG (NEG) Urine Occult Blood NEG (NEG) Urine Nitrite NEG (NEG) Urine Bilirubin NEG (NEG) Urine Urobilinogen NEG (NEG) Urine Leukocyte Esterase NEG (NEG) Urine Opiates Screen NEG (NEG) Urine Methadone, Qualitative NEG (NEG) Urine Barbiturates NEG (NEG) Urine Phencyclidine (PCP) Level NEG (NEG) Ur Amphetamine/Methamphetamine NEG (NEG) MDMA (Ecstasy) Screen NEG (NEG) Urine Benzodiazepines Screen NEG (NEG) Urine Cocaine Metabolite NEG (NEG) Urine Marijuana (THC) NEG (NEG) Laboratory results reviewed by me ECG Per My Interpretation Indication: other (Suicidal) Rate (beats per minute): 84 Rhythm: normal sinus Findings: other (No ST Elevations or Depressions. No PACs or PVCs) ED Course Rechecks: 1957: Patient is medically cleared. He signed a voluntary 201 [id number]: The patient was accepted at [facility]. Transfer paperwork completed. The patient was given his evening Sinemet as well as trazodone. Medical Decision Prior records/ancillary studies reviewed. Triage Nursing notes reviewed and agree them. The patient's history was concerning for possible psychiatric disturbance. Differential diagnosis: Etiologies such as mood disorder, infection, hypoglycemia, electrolyte abnormalities, cardiac sources, intracerebral event, toxicologic, neurologic, as well as others were entertained. Physical examination: The physical examination was performed as above and was completely benign. No emergent medical pathologies were noted. ER treatment provided: Monitoring. On reassessment the patient felt better. Sinemet Trazodone Diagnostic interpretation by me: The electrocardiogram was negative for pathologic change. The labs revealed an unremarkable CBC and chemistry panel. Urinalysis and toxicology screen negative. Imaging studies: X-ray and CT scan as above. The patient has thoughts of suicide. He presented to the ER with a 302 warrant. He was evaluated by the ER psychiatric case mgr. The patient was voluntary for admission. He had a consult placed with [facility] and was accepted. Secure transport was arranged. The patient was transferred for further management of his suicidality. Medication Reconcilliation Current Medication List: was personally reviewed by me Blood Pressure Screening Patient's blood pressure: Elevated blood pressure Blood pressure disposition: Referred to PCP Impression Primary Impression: Mood disorder Additional Impression: Suicidal ideation Scribe Attestation The scribe's documentation has been prepared under my direction and personally reviewed by me in its entirety. I confirm that the note above accurately reflects all work, treatment, procedures, and medical decision making performed by me. Departure Information Dispostion Being Evaluated By Hospitalist Referrals Tommy Barfield M.D. (PCP) Forms HOME CARE DOCUMENTATION FORM, IMPORTANT VISIT INFORMATION Patient Instructions My [facility] Problem Qualifiers
[2018-05-18] MEDS ORDERED: LEVO1TAB35 PO (17:03)
[2018-05-18] MEDS ORDERED: CHOL1TAB42 PO (17:03)
[2018-05-18] MEDS ORDERED: ESCI10TA17 PO (17:03)
[2018-05-18 17:08] LABS: BASO % 0.3 %; BASO ABS # 0.02 K/uL (0-0.2); EOS % 0.8 %; EOS ABS # 0.05 K/uL (0-0.5); HEMATOCRIT 41.8 % (42-52); IG# 0.02 K/uL (0.00-0.02); LYMPH ABS # 1.13 K/uL (1.2-3.4); MEAN CELL VOLUME 93.7 fL (80-100); MEAN CORPUSCULAR HEMOGLOBIN 31.4 pg (25-34); MEAN CORPUSCULAR HGB CONC 33.5 g/dl (32-36); MEAN PLATELET VOLUME 9.7 fL (7.4-10.4); MONO % 14.2 %; MONO ABS # 0.89 K/uL (0.11-0.59); NEUT % 66.4 %; NEUT ABS # 4.17 K/uL (1.4-6.5); PLATELET COUNT 198 K/uL (130-400); RED CELL DISTRIBUTION WIDTH CV 14.5 % (11.5-14.5); WHITE BLOOD COUNT 6.28 K/uL (4.8-10.8)
[2018-05-18 17:38] LABS: ALBUMIN 3.1 gm/dl (3.4-5.0); ALKALINE PHOSPHATASE 79 U/L (45-117); ALT/SGPT 17 U/L (12-78); AST/SGOT 21 U/L (15-37); BLOOD UREA NITROGEN 19 mg/dl (7-18); CALCIUM 8.9 mg/dl (8.5-10.1); CARBON DIOXIDE 25 mmol/L (21-32); CREATININE 0.71 mg/dl (0.60-1.40); GLUCOSE 89 mg/dl (70-99); POTASSIUM 4.1 mmol/L (3.5-5.1); SODIUM 137 mmol/L (136-145); TOTAL PROTEIN 6.5 gm/dl (6.4-8.2)
--- NOTE | 2018-05-18 17:40 | DIAGNOSTIC IMAGING REPORT ---
HEAD WITHOUT CONTRAST (CT) CLINICAL HISTORY: 87 years-old Male presenting with EVALUATE FOR PSYCH CLEARANCE. TECHNIQUE: Multidetector CT imaging of the head was performed without the use of intravenous contrast. IV contrast: None. A dose lowering technique was used consistent with the principles of ALARA (as low as reasonably achievable). COMPARISON: 05/02/2018. CT DOSE (mGy.cm): The estimated cumulative dose is 537.48 mGy.cm. FINDINGS: Deputy [employer] topogram: Unremarkable. Proportional ventricular and sulcal prominence, likely age-related parenchymal volume loss with the exception of the vertex where there is gyral crowding and sulcal effacement. The callosal angle now measures 51 degrees, previously 59 degrees. Periventricular and subcortical white matter hypoattenuation, nonspecific but likely indicative of chronic small vessel ischemic change. No mass effect or midline shift. No hemorrhage or acute territorial infarct. No extra-axial fluid collection. Paranasal sinuses and mastoid air cells clear. Calvarium intact. IMPRESSION: 1. No acute intracranial abnormality. 2. 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 Correlate clinically. The appearance is unchanged since 2016. Electronically signed by: Sascha Lauren M.D. 05/18/2018 5:39 PM Dictated Date/Time: 05/18/2018 5:34 PM
[2018-05-18 17:57] VITALS: BP 148/86; PULSE 84; O2SAT 97
--- NOTE | 2018-05-18 18:08 | DIAGNOSTIC IMAGING REPORT ---
CHEST ONE VIEW PORTABLE CLINICAL HISTORY: 87 years-old Male presenting with suicidal. TECHNIQUE: Portable upright AP view of the chest was obtained. COMPARISON: 05/02/2018. FINDINGS: Cardiomediastinal silhouette normal. Multiple skin folds noted over the left hemithorax. No focal opacity. No large effusion or pneumothorax. Osseous structures normal. Upper abdomen normal. IMPRESSION: 1. No acute cardiopulmonary disease. Electronically signed by: Sascha Lauren M.D. 05/18/2018 6:06 PM Dictated Date/Time: 05/18/2018 6:04 PM
[2018-05-18] MEDS ORDERED: BISA10SU3 PR (19:05)
[2018-05-18] MEDS ORDERED: TRAZ50TA35 PO (19:05)
[2018-05-18] MEDS ORDERED: ACET-1311 PO (19:05)
[2018-05-18] MEDS ORDERED: MAGNSUS73 PO (19:05)
[2018-05-18] MEDS ORDERED: CARB25TA12 PO (19:05)
[2018-05-18] MEDS ORDERED: TAMS0.4C38 PO (19:05)
[2018-05-18] MEDS ORDERED: LEVO25TA PO (19:05)
[2018-05-18] MEDS ORDERED: SODIENE PR (19:05)
[2018-05-18] MEDS ORDERED: [UNRECOGNIZED DRUG - CODE] OPB (20:25)
[2018-05-18] MEDS ORDERED: CARBIDOPA/LEVODOPA 25/100MG TAB PO STA (21:36)
[2018-05-18] MEDS ORDERED: TRAZODONE HCL 50 MG TAB PO ONE (21:45)
== END 2018-05-18 23:54 ==
LOC: EDBD 15:25 → C.EDA 15:26
DX: F39 Unspecified mood [affective] disorder (principal); R45.851 Suicidal ideations; G20 Parkinson's disease; E05.90 Thyrotoxicosis, unspecified without thyrotoxic crisis or storm; H40.9 Unspecified glaucoma; Z79.899 Other long term (current) drug therapy